=== PATIENT | female | born 1960 | race African-American/Black ===

== ENCOUNTER 2016-07-12 18:49 | Emergency (ER) | payer MEDICARE, MEDICAID ==
[~2016-07-12] VITALS: Ht 170.2 cm; Wt 109.3 kg
[~2016-07-12 18:49] MED LIST: ASPI81TA27 PO; Atorvastatin Calcium PO; CLOP75TA28 PO; MET25T PO; OMEP20TA PO
[2016-07-12 19:44] LABS: Basophils # (auto) 0 uL; Basophils % (auto) 0.3 % (0.0-2.0); Eosinophils # (auto) 0.2 uL; Eosinophils % (auto) 1.4 % (0.0-7.0); Hematocrit 45.5 % (36.0-46.0); Hemoglobin 15.1 g/dL (12.2-16.2); Lymphocytes % (auto) 26.3 % (10.0-50.0); Mean Corpuscular Hemoglobin 29.2 pg (28.0-32.0); Mean Corpuscular Hgb Conc. 33.2 g/dL (32.0-36.0); Mean Corpuscular Volume 88.1 fL (80.0-100.0); Mean Platelet Volume 9.2 fL (7.4-10.4); Monocytes # (auto) 0.9 uL; Monocytes % (auto) 8.3 % (0.0-12.0); Neutrophils # (auto) 7.2 uL; Neutrophils % (auto) 63.7 % (37.0-80.0); Platelet Count (auto) 303 10^3/uL (140-450); Red Cell Distribution Width 13.6 % (11.6-16.0); White Blood Cell 11.4 10^3/uL (4.4-10.8)
[2016-07-12 19:58] LABS: Albumin 3.4 g/dL (3.4-5.0); BUN/Creatinine Ratio 20.4; Calcium 8.8 mg/dL (8.5-10.1); Potassium 4.3 mmol/L (3.5-5.1)
[2016-07-12 20:02] LABS: Bilirubin, Total 0.3 mg/dL (0.2-1.0); Total Protein 7.7 g/dL (6.4-8.2)
[2016-07-12 22:06] LABS: Urine Bilirubin Negative (Negative); Urine Blood Negative /uL (Negative); Urine Color Yellow (Yellow); Urine Glucose Normal (Normal); Urine Ketone Negative (Negative); Urine Nitrite Negative (Negative); Urine RBC 5 /hpf (0 - 4); Urine Squamous Epithelial Cell MOD /hpf (<5); Urine Urobilinogen Normal (Negative); Urine pH 5.5 (5.0-8.0)
[2016-07-13 00:20] VITALS: BP 121/82
[2016-07-13] MEDS ORDERED: KETOROLAC TROMETH 60MG/2ML VIAL IM ONE (00:30)
== END 2016-07-13 01:48 | disposition home or self-care (01) ==
LOC: ER 18:49
DX: N39.0 Urinary tract infection, site not specified (principal); M19.90 Unspecified osteoarthritis, unspecified site; J45.909 Unspecified asthma, uncomplicated; I12.9 Hypertensive chronic kidney disease with stage 1 through stage 4 chronic kidney disease, or unspecified chronic kidney disease; N18.9 Chronic kidney disease, unspecified; E78.5 Hyperlipidemia, unspecified; Z86.73 Personal history of transient ischemic attack (TIA), and cerebral infarction without residual deficits; Z90.49 Acquired absence of other specified parts of digestive tract; Z90.710 Acquired absence of both cervix and uterus; Z98.61 Coronary angioplasty status; F17.210 Nicotine dependence, cigarettes, uncomplicated; Z88.1 Allergy status to other antibiotic agents; Z88.8 Allergy status to other drugs, medicaments and biological substances
CPT/HCPCS: 36415; 80053; 81001; 85025; 96372; 99284; J1885

== ENCOUNTER 2016-11-29 09:22 | Emergency (ER) | payer MEDICARE, MEDICAID ==
[~2016-11-29] VITALS: Ht 170.2 cm; Wt 111.1 kg
[2016-11-29 09:28] VITALS: BP 116/95
[2016-11-29 10:08] LABS: Basophils # (auto) 0 uL; Basophils % (auto) 0.4 % (0.0-2.0); Eosinophils # (auto) 0.1 uL; Eosinophils % (auto) 0.8 % (0.0-7.0); Hematocrit 44.7 % (36.0-46.0); Lymphocytes # (auto) 1.9 uL; Lymphocytes % (auto) 21.5 % (10.0-50.0); Mean Corpuscular Hemoglobin 29.8 pg (28.0-32.0); Mean Corpuscular Hgb Conc. 33.6 g/dL (32.0-36.0); Mean Corpuscular Volume 88.8 fL (80.0-100.0); Mean Platelet Volume 8.8 fL (6.9-10.8); Monocytes # (auto) 0.6 uL; Monocytes % (auto) 6.4 % (0.0-12.0); Neutrophils # (auto) 6.2 uL; Neutrophils % (auto) 70.9 % (37.0-80.0); Nucleated Red Blood Cells % 0.2 %; Platelet Count (auto) 274 10^3/uL (140-450); Red Cell Distribution Width 13.8 % (11.8-14.3); White Blood Cell 8.7 10^3/uL (4.4-10.8)
[2016-11-29 10:25] LABS: Albumin 3.8 g/dL (3.4-5.0); Alkaline Phosphatase 77 U/L (45-117); Anion Gap 12 (5-15); Aspartate Aminotransferase 22 U/L (15-37); BUN/Creatinine Ratio 17.8; Bilirubin, Total 0.5 mg/dL (0.2-1.0); Blood Urea Nitrogen 13 mg/dL (7-18); Calcium 8.5 mg/dL (8.5-10.1); Carbon Dioxide 23 mmol/L (21-32); Chloride 106 mmol/L (98-107); GFR African American 106 mL/min; GFR Non-African American 88 mL/min; Glucose 99 mg/dL (74-106); Magnesium 2.5 mg/dL (1.6-2.6); Potassium 3.7 mmol/L (3.5-5.1); Sodium 141 mmol/L (136-145); Total Protein 7.9 g/dL (6.4-8.2)
[2016-11-29] MEDS ORDERED: ONDANSETRON HCL 4 MG/2 ML VIAL IV ONE (10:45)
[2016-11-29] MEDS ORDERED: MORPHINE SULF INJ 2 MG/ML SYRINGE 1ML IV ONE (10:45)
[2016-11-29] MEDS ORDERED: ASPirin 81 mg TAB PO ONE (10:45)
[2016-11-29] MEDS ORDERED: diphenhdrAMINE HCL 50 MG/1 ML VL ONE (11:02)
[2016-11-29] MEDS ORDERED: diphenhdrAMINE HCL 50 MG/1 ML VL IV ONE (11:30)
== END 2016-11-29 13:48 | disposition home or self-care (01) ==
LOC: ER 09:22
DX: F41.9 Anxiety disorder, unspecified (principal); J45.909 Unspecified asthma, uncomplicated; M19.90 Unspecified osteoarthritis, unspecified site; K21.9 Gastro-esophageal reflux disease without esophagitis; E78.5 Hyperlipidemia, unspecified; I25.10 Atherosclerotic heart disease of native coronary artery without angina pectoris; I12.9 Hypertensive chronic kidney disease with stage 1 through stage 4 chronic kidney disease, or unspecified chronic kidney disease; F17.210 Nicotine dependence, cigarettes, uncomplicated; N18.9 Chronic kidney disease, unspecified; Z88.6 Allergy status to analgesic agent; Z90.49 Acquired absence of other specified parts of digestive tract; Z90.710 Acquired absence of both cervix and uterus
CPT/HCPCS: 36415; 71020; 80053; 83735; 84484; 85025; 93005; 96374; 96375; 99285; J1200; J2270; J2405; J7030

== ENCOUNTER → 2016-12-04 | Outpatient (CLI) | payer MEDICARE, MEDICAID ==
[~2016-12-04] VITALS: Ht 170.2 cm; Wt 111.1 kg
[~2016-12-04] MED LIST changes: +ADENOSINE 93 MG in GIVE UN-DILUTED 0 ML IV STA; +ALBUTEROL SULF 2.5 MG/0.5ML(0.5%) NEB SOLN NEB ONE; +IPRATROPIUM BROM 0.5 MG/2.5ML INH SOL NEB ONE
== END | disposition home or self-care (01) ==
LOC: XY 07:27
PROVIDERS: ATTEND Internal Medicine Cardiovascular Disease
DX: R07.89 Other chest pain (principal); I12.9 Hypertensive chronic kidney disease with stage 1 through stage 4 chronic kidney disease, or unspecified chronic kidney disease; N18.9 Chronic kidney disease, unspecified; I25.10 Atherosclerotic heart disease of native coronary artery without angina pectoris; K21.9 Gastro-esophageal reflux disease without esophagitis; Z98.61 Coronary angioplasty status; Z90.49 Acquired absence of other specified parts of digestive tract
CPT/HCPCS: 78452; 93017; A9500; J0153

== ENCOUNTER 2017-06-05 07:42 | Day surgery (SDC) | payer MEDICARE, MEDICAID ==
[2017-06-03 15:59] LABS: Urine Bacteria MANY /hpf (None Seen); Urine Blood TRACE /uL (Negative); Urine Mucus FEW (None Seen); Urine Specific Gravity 1.025 (1.001-1.035); Urine WBC 10 /hpf (0 - 5)
[2017-06-03 16:13] LABS: Basophils # (auto) 0 uL; Basophils % (auto) 0.3 % (0.0-2.0); Eosinophils # (auto) 0.1 uL; Eosinophils % (auto) 0.9 % (0.0-7.0); Hematocrit 46.9 % (36.0-46.0); Hemoglobin 15.3 g/dL (12.2-16.2); Lymphocytes # (auto) 1.9 uL; Lymphocytes % (auto) 18.9 % (10.0-50.0); Mean Corpuscular Hemoglobin 29.5 pg (28.0-32.0); Mean Corpuscular Hgb Conc. 32.6 g/dL (32.0-36.0); Mean Corpuscular Volume 90.5 fL (80.0-100.0); Monocytes # (auto) 0.7 uL; Monocytes % (auto) 7.4 % (0.0-12.0); Neutrophils # (auto) 7.2 uL; Neutrophils % (auto) 72.5 % (37.0-80.0); Nucleated Red Blood Cells % 0.1 %; Platelet Count (auto) 276 10^3/uL (140-450); Red Blood Cells 5.19 10^6/uL (4.0-5.20); Red Cell Distribution Width 14.7 % (11.8-14.3); White Blood Cell 9.9 10^3/uL (4.4-10.8)
[2017-06-03 16:21] LABS: Albumin 3.7 g/dL (3.4-5.0); BUN/Creatinine Ratio 19.8; Bilirubin, Total 0.2 mg/dL (0.2-1.0); Calcium 9.3 mg/dL (8.5-10.1); Potassium 4.2 mmol/L (3.5-5.1)
[2017-06-03 16:47] LABS: INR 0.97 (0.9-1.15); Partial Thromboplastin Time 26.8 sec (22.64-33.71); Prothrombin Time 10.6 sec (9.37-12.3)
[~2017-06-05] VITALS: Ht 170.2 cm; Wt 111.1 kg
[2017-06-05] MEDS ORDERED: ceFAZolin 1GM/50ML 50 ML IV ONE (10:32)
[2017-06-05] MEDS ORDERED: BUPIVACAINE 0.75% INJ 10ML MPV SDV IJ ONE (13:45)
[2017-06-05] MEDS ORDERED: NEOMYCIN-BACITRACIN-POLYM 15GM TOP OINT TOP ONE (13:45)
[2017-06-05] MEDS ORDERED: MIDAZOLAM HCL 1MG/1ML-2 ML VIAL ONE (14:31)
[2017-06-05] MEDS ORDERED: PROPOFOL 10 MG/ML 20 ML IV ONE (14:31)
[2017-06-05] MEDS ORDERED: fentaNYL CITRATE 100 MCG/2 ML VL ONE (14:31)
[2017-06-05] MEDS ORDERED: hydrALAZINE HCL 20 MG/ML VL IV PRN (15:15)
[2017-06-05] MEDS ORDERED: ONDANSETRON HCL 4 MG/2 ML VIAL IV ONE (15:15)
[2017-06-05] MEDS ORDERED: ePHEDrine SULFATE 50 MG/ML AMP IV PRN (15:15)
[2017-06-05 15:30] VITALS: BP 149/93
[2017-06-05] MEDS ORDERED: fentaNYL CITRATE 100 MCG/2 ML VL IV ONE (16:00)
== END 2017-06-05 15:35 | disposition home or self-care (01) ==
LOC: SUR 07:42
PROVIDERS: ATTEND Podiatrist Foot & Ankle Surgery
DX: B07.0 Plantar wart (principal); K21.9 Gastro-esophageal reflux disease without esophagitis; E66.9 Obesity, unspecified; Z68.38 Body mass index [BMI] 38.0-38.9, adult; I50.9 Heart failure, unspecified; J40 Bronchitis, not specified as acute or chronic; D21.9 Benign neoplasm of connective and other soft tissue, unspecified; Z90.710 Acquired absence of both cervix and uterus; F41.9 Anxiety disorder, unspecified; Z87.891 Personal history of nicotine dependence; Z90.49 Acquired absence of other specified parts of digestive tract; I25.119 Atherosclerotic heart disease of native coronary artery with unspecified angina pectoris
CPT/HCPCS: 14040; 36415; 80053; 81001; 85025; 85610; 85730; 88304; J0690; J2250; J2704; J3010; J3490; L3260

== ENCOUNTER → 2018-11-07 | Outpatient (CLI) | payer MEDICARE, MEDICAID ==
[2018-11-07 10:24] LABS: Basophils # (auto) 0 uL; Basophils % (auto) 0.5 % (0.0-2.0); Eosinophils # (auto) 0.2 uL; Hematocrit 45.1 % (36.0-46.0); Hemoglobin 14.6 g/dL (12.2-16.2); Lymphocytes # (auto) 1.9 uL; Lymphocytes % (auto) 24.7 % (10.0-50.0); Mean Corpuscular Hemoglobin 29.2 pg (28.0-32.0); Mean Corpuscular Hgb Conc. 32.4 g/dL (32.0-36.0); Mean Corpuscular Volume 90.3 fL (80.0-100.0); Monocytes # (auto) 0.4 uL; Monocytes % (auto) 5.6 % (0.0-12.0); Neutrophils # (auto) 5.1 uL; Neutrophils % (auto) 67.2 % (37.0-80.0); Nucleated Red Blood Cells % 0.2 %; Platelet Count (auto) 281 10^3/uL (140-450); Red Blood Cells 4.99 10^6/uL (4.0-5.20); Red Cell Distribution Width 15.6 % (11.8-14.3); White Blood Cell 7.7 10^3/uL (4.4-10.8)
[2018-11-07 10:37] LABS: INR 0.99 (0.9-1.15)
[2018-11-07 10:46] LABS: Urine Bacteria NONE SEEN /hpf (None Seen); Urine Blood Negative /uL (Negative); Urine Specific Gravity 1.024 (1.001-1.035); Urine WBC 31 /hpf (0 - 5)
[2018-11-07 10:54] LABS: Albumin 3.9 g/dL (3.4-5.0); Potassium 3.9 mmol/L (3.5-5.1)
[2018-11-07 11:01] LABS: BUN/Creatinine Ratio 19.8; Bilirubin, Total 0.4 mg/dL (0.2-1.0); Total Protein 7.8 g/dL (6.4-8.2)
== END | disposition home or self-care (01) ==
LOC: LAB 09:44
PROVIDERS: ATTEND Internal Medicine
DX: K92.0 Hematemesis (principal); I13.0 Hypertensive heart and chronic kidney disease with heart failure and stage 1 through stage 4 chronic kidney disease, or unspecified chronic kidney disease; I50.9 Heart failure, unspecified; N18.9 Chronic kidney disease, unspecified
CPT/HCPCS: 36415; 80053; 80061; 81001; 84439; 84443; 85025; 85610; 85652

== ENCOUNTER → 2019-01-02 | Outpatient (CLI) | payer MEDICARE, MEDICAID | END | disposition home or self-care (01) | LOC: XYW 08:51 | PROVIDERS: ATTEND Internal Medicine | DX: Z01.810 Encounter for preprocedural cardiovascular examination (principal); I11.9 Hypertensive heart disease without heart failure; I13.11 Hypertensive heart and chronic kidney disease without heart failure, with stage 5 chronic kidney disease, or end stage renal disease; I25.10 Atherosclerotic heart disease of native coronary artery without angina pectoris; N18.6 End stage renal disease; F17.200 Nicotine dependence, unspecified, uncomplicated; K21.9 Gastro-esophageal reflux disease without esophagitis; M19.90 Unspecified osteoarthritis, unspecified site; J45.909 Unspecified asthma, uncomplicated; E78.5 Hyperlipidemia, unspecified; Z90.710 Acquired absence of both cervix and uterus; Z90.49 Acquired absence of other specified parts of digestive tract; Z98.61 Coronary angioplasty status; Z88.8 Allergy status to other drugs, medicaments and biological substances | CPT/HCPCS: 93306 ==

== ENCOUNTER → 2019-01-13 | Outpatient (CLI) | payer MEDICARE, MEDICAID ==
[~2019-01-13] VITALS: Ht 170.2 cm; Wt 111.1 kg
[~2019-01-13] MED LIST changes: -ALBUTEROL SULF 2.5 MG/0.5ML(0.5%) NEB SOLN NEB ONE; -ASPI81TA27 PO; -Atorvastatin Calcium PO; -CLOP75TA28 PO; -IPRATROPIUM BROM 0.5 MG/2.5ML INH SOL NEB ONE; -MET25T PO; -OMEP20TA PO
[2019-01-13 09:58] VITALS: BP 148/104
== END | disposition home or self-care (01) ==
LOC: XY 07:54
PROVIDERS: ATTEND Internal Medicine
DX: Z01.810 Encounter for preprocedural cardiovascular examination (principal); I25.10 Atherosclerotic heart disease of native coronary artery without angina pectoris
CPT/HCPCS: 78452; 93017; A9500; J0153

== ENCOUNTER → 2019-08-14 | Outpatient (CLI) | payer MEDICARE, MEDICAID ==
[~2019-08-14] MED LIST changes: -ADENOSINE 93 MG in GIVE UN-DILUTED 0 ML IV STA; +CARI350T23; +ESOM40CA83; +HYDR-531; +SIMV-8
== END | disposition home or self-care (01) ==
LOC: LAB 13:48
PROVIDERS: ATTEND Nurse Practitioner Family
DX: Z03.818 Encounter for observation for suspected exposure to other biological agents ruled out (principal)
CPT/HCPCS: 87635

== ENCOUNTER 2020-11-03 08:42 | Day surgery (SDC) | payer MEDICARE, MEDICAID ==
[2020-10-31 10:41] LABS: Basophils # (auto) 0 10 ^3/uL (0-0.2); Basophils % (auto) 0.5 % (0.0-2.0); Eosinophils # (auto) 0.1 10 ^3/uL (0-0.8); Eosinophils % (auto) 1.2 % (0.0-7.0); Hematocrit 48.6 % (36.0-46.0); Hemoglobin 15.8 g/dL (12.2-16.2); Lymphocytes # (auto) 1.4 10 ^3/uL (0.4-5.4); Lymphocytes % (auto) 20.1 % (10.0-50.0); Mean Corpuscular Hemoglobin 30.1 pg (28.0-32.0); Mean Corpuscular Hgb Conc. 32.5 g/dL (32.0-36.0); Mean Corpuscular Volume 92.4 fL (80.0-100.0); Monocytes # (auto) 0.6 10 ^3/uL (0-1.3); Monocytes % (auto) 7.8 % (0.0-12.0); Neutrophils % (auto) 70.4 % (37.0-80.0); Nucleated Red Blood Cells % 0.1 %; Red Blood Cells 5.26 10^6/uL (4.0-5.20); Red Cell Distribution Width 13.6 % (11.8-14.3); White Blood Cell 7.1 10^3/uL (4.4-10.8)
[2020-10-31 12:30] LABS: Potassium 4.3 mmol/L (3.5-5.1)
[2020-10-31 12:39] LABS: Albumin 3.8 g/dL (3.4-5.0); Bilirubin, Total 0.3 mg/dL (0.2-1.0); Calcium 9.3 mg/dL (8.5-10.1)
[~2020-11-03] VITALS: Ht 167.6 cm; Wt 104.3 kg
[2020-11-03] MEDS ORDERED: SODIUM CHLORIDE LOCK 10 ML ONE (08:54)
[2020-11-03] MEDS ORDERED: diphenhdrAMINE HCL 50 MG/1 ML VL ONE (08:55)
[2020-11-03] MEDS ORDERED: LIDOCAINE VISCOUS 2% 15ML UD ONE (09:03)
[2020-11-03] MEDS: MIDAZOLAM HCL 5 MG/ML-1ML VIAL ONE ×5 (09:22→09:44)
[2020-11-03] MEDS: fentaNYL CITRATE 100 MCG/2 ML VL ONE ×5 (09:22→09:44)
[2020-11-03 10:35] VITALS: BP 146/90
== END 2020-11-03 10:35 | disposition home or self-care (01) ==
LOC: GI 08:42
PROVIDERS: ATTEND Internal Medicine Gastroenterology
DX: K57.90 Diverticulosis of intestine, part unspecified, without perforation or abscess without bleeding (principal); R19.5 Other fecal abnormalities; R10.9 Unspecified abdominal pain; I25.2 Old myocardial infarction; R63.4 Abnormal weight loss; K21.9 Gastro-esophageal reflux disease without esophagitis; F41.9 Anxiety disorder, unspecified; I50.9 Heart failure, unspecified; I25.118 Atherosclerotic heart disease of native coronary artery with other forms of angina pectoris; Z90.710 Acquired absence of both cervix and uterus; Z98.890 Other specified postprocedural states; Z79.899 Other long term (current) drug therapy; Z88.8 Allergy status to other drugs, medicaments and biological substances; Z68.37 Body mass index [BMI] 37.0-37.9, adult; Z20.822 Contact with and (suspected) exposure to COVID-19
CPT/HCPCS: 36415; 43239; 45378; 80053; 85025; 88305; 88342; C9803; J1200; J2250; J3010; J7030; U0003; 99153; G0500

== ENCOUNTER → 2020-11-22 | Outpatient (CLI) | payer MEDICARE | END | disposition home or self-care (01) | LOC: LAB 10:46 | PROVIDERS: ATTEND Internal Medicine Gastroenterology | DX: R10.9 Unspecified abdominal pain (principal) | CPT/HCPCS: 36415; 82565; 84520 ==

== ENCOUNTER 2022-05-30 11:00 | Day surgery (SDC) | payer OTHER ==
[2022-05-28 13:25] LABS: Basophils # (auto) 0 10 ^3/uL (0-0.2); Basophils % (auto) 0.4 % (0.0-2.0); Eosinophils # (auto) 0.1 10 ^3/uL (0-0.8); Eosinophils % (auto) 0.7 % (0.0-7.0); Hematocrit 41.9 % (36.0-46.0); Hemoglobin 13.9 g/dL (12.2-16.2); Lymphocytes # (auto) 1.5 10 ^3/uL (0.4-5.4); Lymphocytes % (auto) 19.9 % (10.0-50.0); Mean Corpuscular Hemoglobin 31.3 pg (28.0-32.0); Mean Corpuscular Hgb Conc. 33.2 g/dL (32.0-36.0); Mean Corpuscular Volume 94.5 fL (80.0-100.0); Monocytes # (auto) 0.6 10 ^3/uL (0-1.3); Monocytes % (auto) 7.8 % (0.0-12.0); Neutrophils # (auto) 5.2 10 ^3/uL (1.6-8.6); Neutrophils % (auto) 71.2 % (37.0-80.0); Nucleated Red Blood Cells % 0.2 %; Red Blood Cells 4.43 10^6/uL (4.0-5.20); Red Cell Distribution Width 13.5 % (11.8-14.3); White Blood Cell 7.3 10^3/uL (4.4-10.8)
[2022-05-28 13:41] LABS: Urine Bacteria FEW /hpf (None Seen); Urine Blood Negative /uL (Negative); Urine Mucus FEW (None Seen); Urine Specific Gravity 1.027 (1.001-1.035); Urine WBC 18 /hpf (0 - 5)
[2022-05-28 13:43] LABS: Potassium 3.5 mmol/L (3.5-5.1)
[2022-05-28 13:44] LABS: INR 1.01 (0.9-1.15); Partial Thromboplastin Time 26.5 sec (24.6-33.4)
[2022-05-28 13:51] LABS: Albumin 3.4 g/dL (3.4-5.0); BUN/Creatinine Ratio 20.8 (10.0-20.0); Bilirubin, Total 0.7 mg/dL (0.2-1.0); Calcium 8.8 mg/dL (8.5-10.1); Total Protein 7.5 g/dL (6.4-8.2)
[~2022-05-30] VITALS: Ht 167.6 cm; Wt 99.3 kg
[~2022-05-30 11:00] MED LIST changes: +ASPI1TAB20 PO; -CARI350T23; -ESOM40CA83; -HYDR-531; +METO25TA5 PO; +PANT40TA2 PO; +SUCR1SUS5 PO
[2022-05-30] MEDS ORDERED: MIDAZOLAM HCL 2MG/2ML 2ml VIAL (1mg/ml) ONE (13:56)
[2022-05-30] MEDS ORDERED: fentaNYL CITRATE 100 MCG/2 ML VL ONE (13:56)
[2022-05-30] MEDS ORDERED: MEPERIDINE HCL (25 MG/ML) 1ML VIAL ONE (13:56)
[2022-05-30] MEDS ORDERED: DexAMETHasone SOD PHOS 10MG/1ML VIAL INJ ONE (14:27)
[2022-05-30] MEDS ORDERED: PROPOFOL 10 MG/ML 20 ML IV ONE (14:27)
[2022-05-30 15:15] VITALS: BP 110/86
== END 2022-05-30 15:15 | disposition home or self-care (01) ==
LOC: GI 11:00
PROVIDERS: ATTEND Internal Medicine Gastroenterology
DX: R10.13 Epigastric pain (principal); K59.09 Other constipation; K57.30 Diverticulosis of large intestine without perforation or abscess without bleeding; K64.0 First degree hemorrhoids; K63.5 Polyp of colon; K62.1 Rectal polyp; K25.9 Gastric ulcer, unspecified as acute or chronic, without hemorrhage or perforation; K29.50 Unspecified chronic gastritis without bleeding; K44.9 Diaphragmatic hernia without obstruction or gangrene; Z20.822 Contact with and (suspected) exposure to COVID-19
CPT/HCPCS: 36415; 43239; 45380; 80053; 81001; 85025; 85610; 85730; 88305; 88342; J1100; J2175; J2250; J2704; J3010; J7030; U0003

== ENCOUNTER → 2022-06-06 | Outpatient (CLI) | payer OTHER ==
[2022-06-06 13:57] LABS: Basophils # (auto) 0.1 10 ^3/uL (0-0.2); Basophils % (auto) 0.8 % (0.0-2.0); Eosinophils # (auto) 0.1 10 ^3/uL (0-0.8); Eosinophils % (auto) 0.9 % (0.0-7.0); Hematocrit 41.1 % (36.0-46.0); Hemoglobin 13.7 g/dL (12.2-16.2); Lymphocytes # (auto) 1.4 10 ^3/uL (0.4-5.4); Lymphocytes % (auto) 19.4 % (10.0-50.0); Mean Corpuscular Hgb Conc. 33.4 g/dL (32.0-36.0); Mean Corpuscular Volume 95.6 fL (80.0-100.0); Monocytes # (auto) 0.6 10 ^3/uL (0-1.3); Monocytes % (auto) 7.9 % (0.0-12.0); Neutrophils # (auto) 5.1 10 ^3/uL (1.6-8.6); Nucleated Red Blood Cells % 0.1 %; Red Cell Distribution Width 13.7 % (11.8-14.3); White Blood Cell 7.3 10^3/uL (4.4-10.8)
[2022-06-06 14:09] LABS: Urine Bacteria FEW /hpf (None Seen); Urine Blood Negative /uL (Negative); Urine Mucus FEW (None Seen); Urine Specific Gravity 1.023 (1.001-1.035); Urine WBC 8 /hpf (0 - 5)
[2022-06-06 14:28] LABS: Potassium 3.5 mmol/L (3.5-5.1)
[2022-06-06 14:55] LABS: Albumin 3.2 g/dL (3.4-5.0); BUN/Creatinine Ratio 19.1 (10.0-20.0); Calcium 8.9 mg/dL (8.5-10.1)
[2022-06-06 14:58] LABS: Bilirubin, Total 0.4 mg/dL (0.2-1.0); Total Protein 7.3 g/dL (6.4-8.2)
== END | disposition home or self-care (01) ==
LOC: LAB 13:32
PROVIDERS: ATTEND Internal Medicine
DX: N39.0 Urinary tract infection, site not specified (principal)
CPT/HCPCS: 36415; 80053; 81001; 85025; 87086

== ENCOUNTER → 2022-07-02 | Outpatient (CLI) | payer OTHER ==
[2022-07-02 14:01] LABS: Albumin 3.7 g/dL (3.4-5.0); Potassium 4.4 mmol/L (3.5-5.1)
[2022-07-02 14:05] LABS: BUN/Creatinine Ratio 17.1 (10.0-20.0); Bilirubin, Total 0.4 mg/dL (0.2-1.0); Total Protein 7.7 g/dL (6.4-8.2)
== END | disposition home or self-care (01) ==
LOC: LAB 13:27
PROVIDERS: ATTEND Internal Medicine
DX: I10 Essential (primary) hypertension (principal); R79.89 Other specified abnormal findings of blood chemistry
CPT/HCPCS: 36415; 80053

== ENCOUNTER → 2023-03-07 | Outpatient (CLI) | payer MEDICARE ==
[~2023-03-07] MED LIST changes: -SIMV-8; +SIMV20TA20
[2023-03-07 08:09] LABS: Basophils # (auto) 0 10 ^3/uL (0-0.2); Basophils % (auto) 0.4 % (0.0-2.0); Eosinophils # (auto) 0.1 10 ^3/uL (0-0.8); Eosinophils % (auto) 0.7 % (0.0-7.0); Hematocrit 43.9 % (36.0-46.0); Hemoglobin 14.3 g/dL (12.2-16.2); Lymphocytes # (auto) 2.1 10 ^3/uL (0.4-5.4); Lymphocytes % (auto) 29.3 % (10.0-50.0); Mean Corpuscular Hemoglobin 30.4 pg (28.0-32.0); Mean Corpuscular Hgb Conc. 32.6 g/dL (32.0-36.0); Mean Corpuscular Volume 93.2 fL (80.0-100.0); Monocytes # (auto) 0.7 10 ^3/uL (0-1.3); Monocytes % (auto) 9.5 % (0.0-12.0); Neutrophils # (auto) 4.3 10 ^3/uL (1.6-8.6); Neutrophils % (auto) 60.1 % (37.0-80.0); Nucleated Red Blood Cells % 0.1 %; Red Blood Cells 4.71 10^6/uL (4.0-5.20); Red Cell Distribution Width 14.4 % (11.8-14.3); White Blood Cell 7.2 10^3/uL (4.4-10.8)
[2023-03-07 08:28] LABS: Urine Bacteria NONE SEEN /hpf (None Seen); Urine Blood Negative /uL (Negative); Urine Clarity HAZY (Clear); Urine Color Yellow (Yellow); Urine Hyaline Cast FEW /lpf (0 - 2); Urine Mucus FEW (None Seen); Urine Protein, UAD TRACE (Negative); Urine Specific Gravity 1.024 (1.001-1.035); Urine Urobilinogen Normal (Negative); Urine WBC 7 /hpf (0 - 5); Urine pH 5.5 (5.0-8.0)
[2023-03-07 08:50] LABS: Alanine Aminotransferase 14 U/L (7-40); Albumin 4.5 g/dL (3.2-4.8); Alkaline Phosphatase 74 U/L (46-116); Anion Gap 7 (5-15); Aspartate Aminotransferase 17 U/L (13-40); BUN/Creatinine Ratio 13.8 (10.0-20.0); Bilirubin, Total 0.6 mg/dL (0.2-1.0); Blood Urea Nitrogen 11 mg/dL (9-23); Calcium 9.2 mg/dL (8.5-10.1); Carbon Dioxide 29 mmol/L (20-30); Chloride 106 mmol/L (98-107); Cholesterol 260 mg/dL (< 200); Glucose 99 mg/dL (74-106); HDL Cholesterol 70 mg/dL (40-59); LDL Cholesterol 181 mg/dL (< 100); Potassium 3.8 mmol/L (3.5-5.1); Sodium 142 mmol/L (136-145); Total Protein 7.4 g/dL (5.7-8.2); Triglycerides 67 mg/dL (< 150)
[2023-03-07 09:04] LABS: Erythrocyte Sedimentation Rate 24 mm/hr (0-20)
== END | disposition home or self-care (01) ==
LOC: LAB 07:51
PROVIDERS: ATTEND Internal Medicine
DX: I10 Essential (primary) hypertension (principal); I25.10 Atherosclerotic heart disease of native coronary artery without angina pectoris
CPT/HCPCS: 36415; 80053; 80061; 81001; 84439; 84443; 85025; 85652

== ENCOUNTER → 2023-03-12 | Outpatient (CLI) | payer MEDICARE, OTHER | END | disposition home or self-care (01) | LOC: XYW 11:45 | PROVIDERS: ATTEND Internal Medicine | DX: I08.8 Other rheumatic multiple valve diseases (principal); R07.9 Chest pain, unspecified | CPT/HCPCS: 93306 ==

== ENCOUNTER → 2023-04-08 | Outpatient (CLI) | payer MEDICARE, OTHER ==
[~2023-04-08] VITALS: Ht 167.6 cm; Wt 104.3 kg
[2023-04-08] MEDS: ADENOSINE 88 MG in GIVE UN-DILUTED 0 ML IV STA (10:38)
== END | disposition home or self-care (01) ==
LOC: XYW 07:55
PROVIDERS: ATTEND Internal Medicine
DX: Z01.810 Encounter for preprocedural cardiovascular examination (principal); I25.118 Atherosclerotic heart disease of native coronary artery with other forms of angina pectoris; R07.9 Chest pain, unspecified; I10 Essential (primary) hypertension; M17.10 Unilateral primary osteoarthritis, unspecified knee; Z95.5 Presence of coronary angioplasty implant and graft
CPT/HCPCS: 78452; 93017; A9500; J0153

== ENCOUNTER 2023-11-12 07:26 | Inpatient (IN) | payer MEDICARE, OTHER ==
[2023-11-08 14:59] LABS: Basophils # (auto) 0 10 ^3/uL (0-0.2); Basophils % (auto) 0.5 % (0.0-2.0); Eosinophils # (auto) 0.2 10 ^3/uL (0-0.8); Eosinophils % (auto) 2.6 % (0.0-7.0); Hematocrit 44.7 % (36.0-46.0); Hemoglobin 14.9 g/dL (12.2-16.2); Lymphocytes # (auto) 1.6 10 ^3/uL (0.4-5.4); Lymphocytes % (auto) 23.4 % (10.0-50.0); Mean Corpuscular Hgb Conc. 33.3 g/dL (32.0-36.0); Mean Corpuscular Volume 93.1 fL (80.0-100.0); Monocytes # (auto) 0.6 10 ^3/uL (0-1.3); Monocytes % (auto) 8.3 % (0.0-12.0); Neutrophils # (auto) 4.6 10 ^3/uL (1.6-8.6); Neutrophils % (auto) 65.2 % (37.0-80.0); Nucleated Red Blood Cells % 0.1 %; Platelet Count (auto) 250 10^3/uL (140-450); Red Cell Distribution Width 13.8 % (11.8-14.3)
[2023-11-08 15:05] LABS: INR 1.08 (0.9-1.15); Partial Thromboplastin Time 26.1 SEC (24.5-34.5); Prothrombin Time 11.4 sec (9.3-11.8)
[2023-11-08 15:25] LABS: Alanine Aminotransferase 32 U/L (7-40); Alkaline Phosphatase 82 U/L (46-116); Anion Gap 4 (5-15); Aspartate Aminotransferase 30 U/L (13-40); BUN/Creatinine Ratio 16.5 (10.0-20.0); Blood Urea Nitrogen 16 mg/dL (9-23); Calcium 9.8 mg/dL (8.7-10.4); Carbon Dioxide 30 mmol/L (20-30); Chloride 109 mmol/L (98-107); Glucose 94 mg/dL (74-106); Potassium 4.4 mmol/L (3.5-5.1); Sodium 143 mmol/L (136-145)
[2023-11-08 15:26] LABS: Albumin 4.6 g/dL (3.2-4.8); Bilirubin, Total 0.4 mg/dL (0.2-1.0); Total Protein 7.5 g/dL (5.7-8.2)
[2023-11-12] VITALS (20 sets, daily range): BP systolic 104–196; BP diastolic 64–114; PULSE 72–103; RESP 13–19; TEMP 97.7–97.9; O2SAT 95–98
[~2023-11-12] VITALS: Ht 170.2 cm; Wt 109.2 kg
[~2023-11-12 07:26] MED LIST changes: +ATOR20TA50 PO; -SIMV20TA20; -SUCR1SUS5 PO
[2023-11-12] MEDS: ANGIOMAX 250 MG VIAL IV ONE (09:29)
[2023-11-12] MEDS: HEPARIN SODIUM (PORCINE) 5000 UNITS/ML 1ML VIAL ONE (09:29)
[2023-11-12] MEDS: VERAPAMIL 2.5MG/ML INJ 2ML VIAL IV ONE (09:30)
[2023-11-12] MEDS: fentaNYL CITRATE 100 MCG/2 ML VL ONE (09:30)
[2023-11-12] MEDS: MIDAZOLAM HCL 2MG/2ML 2ml VIAL (1mg/ml) ONE (09:30)
[2023-11-12] MEDS: SODIUM CHL 0.9% 0 ML ONE (09:30)
[2023-11-12] MEDS: LIDOCAINE 2%HCL (LOCAL ANESTH.) INJ 10ml MDV ONE (09:31)
[2023-11-12] MEDS ORDERED: NITROGLYCERIN 0.4 MG SL TAB SL PRN (11:00)
[2023-11-12] MEDS: hydrALAZINE HCL 20 MG/ML VL IV PRN (11:35)
[2023-11-12] MEDS: HEPARIN DRIP/D5W 100UNITS/ML 250 ML IV SCH ×2 (11:46→21:30)
[2023-11-12] MEDS: HEPARIN DRIP/D5W 100UNITS/ML 250 ML IV ONE (11:53)
[2023-11-12 12:20] LABS: Basophils # (auto) 0 10 ^3/uL (0-0.2); Basophils % (auto) 0.4 % (0.0-2.0); Eosinophils # (auto) 0.1 10 ^3/uL (0-0.8); Eosinophils % (auto) 1.6 % (0.0-7.0); Hematocrit 45.6 % (36.0-46.0); Hemoglobin 15.2 g/dL (12.2-16.2); Lymphocytes # (auto) 1.7 10 ^3/uL (0.4-5.4); Lymphocytes % (auto) 33.1 % (10.0-50.0); Mean Corpuscular Hemoglobin 31.1 pg (28.0-32.0); Mean Corpuscular Hgb Conc. 33.3 g/dL (32.0-36.0); Mean Corpuscular Volume 93.5 fL (80.0-100.0); Monocytes # (auto) 0.4 10 ^3/uL (0-1.3); Monocytes % (auto) 7.5 % (0.0-12.0); Neutrophils # (auto) 2.9 10 ^3/uL (1.6-8.6); Neutrophils % (auto) 57.4 % (37.0-80.0); Nucleated Red Blood Cells % 0.2 %; Platelet Count (auto) 208 10^3/uL (140-450); Red Blood Cells 4.88 10^6/uL (4.0-5.20); Red Cell Distribution Width 13.9 % (11.8-14.3)
[2023-11-12 12:34] LABS: INR 1.12 (0.9-1.15); Partial Thromboplastin Time 27.3 SEC (24.5-34.5); Prothrombin Time 11.8 sec (9.3-11.8)
[2023-11-12] MEDS: ONDANSETRON HCL 4 MG/2 ML VIAL ONE (12:48)
[2023-11-12] MEDS: ONDANSETRON HCL 4 MG/2 ML VIAL IV PRN (12:50)
[2023-11-12] MEDS: HYDROcodone-ACET 5/325MG TAB PO PRN (18:34)
[2023-11-12 21:06] LABS: INR 1.1 (0.9-1.15); Partial Thromboplastin Time 36.7 SEC (24.5-34.5); Prothrombin Time 11.6 sec (9.3-11.8)
[2023-11-12] MEDS: ATORVASTATIN 20 MG TAB PO SCH (22:08)
[2023-11-13 01:00] VITALS: BP 126/81; PULSE 77; RESP 18; TEMP 98.3; O2SAT 94
[2023-11-13] MEDS: MORPHINE SULFATE INJ 2 MG/ml SYRG IV PRN (01:02)
[2023-11-13 04:13] LABS: Chloride 108 mmol/L (98-107); Potassium 3.6 mmol/L (3.5-5.1); Sodium 139 mmol/L (136-145)
[2023-11-13 04:14] LABS: Anion Gap 7 (5-15); Calcium 9.1 mg/dL (8.7-10.4); Carbon Dioxide 24 mmol/L (20-30)
[2023-11-13 04:18] LABS: Hemoglobin 13.4 g/dL (12.2-16.2); Mean Corpuscular Volume 93.3 fL (80.0-100.0)
[2023-11-13 04:19] LABS: BUN/Creatinine Ratio 11.8 (10.0-20.0); Blood Urea Nitrogen 9 mg/dL (9-23); Glucose 107 mg/dL (74-106)
[2023-11-13 04:20] LABS: INR 1.14 (0.9-1.15); Partial Thromboplastin Time 48.5 SEC (24.5-34.5)
[2023-11-13 04:21] LABS: Basophils # (auto) 0 10 ^3/uL (0-0.2); Basophils % (auto) 0.5 % (0.0-2.0); Eosinophils # (auto) 0.1 10 ^3/uL (0-0.8); Eosinophils % (auto) 1.5 % (0.0-7.0); Hematocrit 40.9 % (36.0-46.0); Lymphocytes # (auto) 1.4 10 ^3/uL (0.4-5.4); Lymphocytes % (auto) 24.6 % (10.0-50.0); Mean Corpuscular Hemoglobin 30.5 pg (28.0-32.0); Mean Corpuscular Hgb Conc. 32.7 g/dL (32.0-36.0); Monocytes # (auto) 0.6 10 ^3/uL (0-1.3); Monocytes % (auto) 10.5 % (0.0-12.0); Neutrophils # (auto) 3.7 10 ^3/uL (1.6-8.6); Neutrophils % (auto) 62.9 % (37.0-80.0); Nucleated Red Blood Cells % 0.2 %; Platelet Count (auto) 194 10^3/uL (140-450); Red Blood Cells 4.38 10^6/uL (4.0-5.20); Red Cell Distribution Width 14.1 % (11.8-14.3); White Blood Cell 5.9 10^3/uL (4.4-10.8)
[2023-11-13] MEDS: HEPARIN DRIP/D5W 100UNITS/ML 250 ML IV SCH (04:45)
[2023-11-13 05:00] VITALS: BP 132/80; PULSE 78; RESP 18; TEMP 98.4; O2SAT 96
[2023-11-13 08:00] VITALS: PULSE 71
[2023-11-13] MEDS: FUROSEMIDE 20 MG/2 ML VIAL IV ONE (08:15)
[2023-11-13 09:00] VITALS: BP 130/76; PULSE 68; RESP 18; TEMP 98.1; O2SAT 96
[2023-11-13 12:34] LABS: INR 1.16 (0.9-1.15); Partial Thromboplastin Time 68.3 SEC (24.5-34.5); Prothrombin Time 12.2 sec (9.3-11.8)
== END 2023-11-13 13:00 | disposition short-term general hospital (02) | DRG 286 ==
LOC: CATH 07:26 → TELE 10:53 → TELE-WESTW 12:39
PROVIDERS: ADMIT Internal Medicine; ATTEND Internal Medicine
PROC: B211YZZ Fluoroscopy of Multiple Coronary Arteries using Other Contrast (ICD-10-PCS; principal; 2023-11-12)
PROC: 4A023N7 Measurement of Cardiac Sampling and Pressure, Left Heart, Percutaneous Approach (ICD-10-PCS; 2023-11-12)
DX: T82.855A Stenosis of coronary artery stent, initial encounter (principal); I50.31 Acute diastolic (congestive) heart failure; I25.119 Atherosclerotic heart disease of native coronary artery with unspecified angina pectoris; E11.9 Type 2 diabetes mellitus without complications; E78.5 Hyperlipidemia, unspecified; I11.0 Hypertensive heart disease with heart failure; E66.9 Obesity, unspecified; Y83.1 Surgical operation with implant of artificial internal device as the cause of abnormal reaction of the patient, or of later complication, without mention of misadventure at the time of the procedure; I25.82 Chronic total occlusion of coronary artery; Z88.8 Allergy status to other drugs, medicaments and biological substances; Z79.899 Other long term (current) drug therapy; Z98.61 Coronary angioplasty status; Z82.49 Family history of ischemic heart disease and other diseases of the circulatory system; Z83.3 Family history of diabetes mellitus; Z90.49 Acquired absence of other specified parts of digestive tract; Z79.82 Long term (current) use of aspirin; Z68.37 Body mass index [BMI] 37.0-37.9, adult; Y92.89 Other specified places as the place of occurrence of the external cause
CPT/HCPCS: 36415; 80048; 80053; 83036; 83880; 85025; 85610; 85730; 93458; 99152; G0378; J2001; J2250; J2405

== ENCOUNTER → 2024-02-03 | Outpatient (CLI) | payer MEDICARE, OTHER ==
[~2024-02-03] VITALS: Ht 167.6 cm; Wt 107.0 kg
[2024-02-03] MEDS: REGADENOSON 0.4 MG/5 ML SYRG IV ONE ×2 (11:06)
--- NOTE | 2024-02-03 17:27 | DVHSR ---
APPROVED REPORT Exam: Nuclear Stress Test Indication: Angina Stress Tech: Kenzie Walker Ht: 5 ft 6 in Wt: 236 lbs BSA: 2.15 m2 HR: 81 bpm BP: 124/91 mmHg BMI: 38.08 Rhythm: NSR Medical History Medical History: CABG, EF 55%, HTN, HLD Allergies: Reglan, Compazine Stress Test Details Stress Test: Pharmacologic stress testing performed using 0.4 mg of regadenoson per 5 mL given IV ov er 10 seconds. Reason for pharmacologic stress test: Angina. HR Resting HR: 81 bpmMax Heart Rate (APMHR): 158.405377 bpm Max HR Achieved: 111 bpmTarget HR (85% APMHR): 134.103908 bpm % of APMHR: 70.25 Recovery HR: 95 bpm BP Resting BP: 124/91 mmHg Recovery BP: 119/70 mmHg ECG Resting ECG: Sinus Rhythm Clinical Reason for Termination: Completed protocol Nurse Comments Received patient from Nuclear Medicine. Patient is A&O x4 and on RA. Patient is connected to beach lifeguard. PIV flushes well. Reviewed POC and patient verbalizes understanding and gives written consen t to test. Lexiscan stress test performed per protocol. flight readiness technician administered the Cardiolite. Patie nt tolerated well and vitals returned to baseline. Transferred to Nuclear Medicine with tech in stabl e condition. Stress ECG Conclusion Resting ECG shows normal sinus rhythm. At peak stress level no dynamic EKG changes was noted to sugg est ischemia. Resting images shows near normal uptake of radioactive tracer throughout the myocardium without evide nce of myocardial infarction. Stress images shows normal uptake of radioactive tracer throughout the myocardium without evidence of myocardial ischemia. Well-preserved left ventricular systolic function at 75% Impression: Negative stress test for ischemia, low risk study NM EXAM: Myocardial Perfusion REST/STRESS Imaging Protocol: Rest Tc-99m/Stress Tc-99m 1 day Resting Data Rest SPECT myocardial perfusion imaging was performed in supine position 60 minutes following the int ravenous injection of 15 mCi of Tc-99m Sestamibi. Time of rest injection: 0950 Time of rest imagin Administration Route: IV Administration Site: Left Arm Pharmacologic Stress Pharmacologic stress test was performed by injecting Regadenoson 0.4 mg IV push followed by the intra venous injection of 35 mCi of Tc-99m Sestamibi. Time of stress injection: 1101 Time of stress imagin Administration Route: IV Administration Site: Left Arm Gated Stress SPECT was performed 60 minutes after stress injection. The images were gated to evaluate regional wall motion and calculate left ventricular ejection fracti on. Stress only was performed in the Supine position. Nuclear Conclusion ECG Findings: negative for ischemia Clinical Findings: negative for ischemia Nuclear Findings: negative for ischemia Exercise Capacity: not assessed Left Ventricular Function: normal Risk Study: low Resting ECG shows normal sinus rhythm. At peak stress level no dynamic EKG changes was noted to sugg est ischemia. Resting images shows near normal uptake of radioactive tracer throughout the myocardium without evide nce of myocardial infarction. Stress images shows normal uptake of radioactive tracer throughout the myocardium without evidence of myocardial ischemia. Well-preserved left ventricular systolic function at 75% Impression: Negative stress test for ischemia, low risk study
== END | disposition home or self-care (01) ==
LOC: XYW 09:43
PROVIDERS: ATTEND Student in an Organized Health Care Education/Training Program
DX: I20.9 Angina pectoris, unspecified (principal); I10 Essential (primary) hypertension; E78.5 Hyperlipidemia, unspecified; Z95.1 Presence of aortocoronary bypass graft; Z88.8 Allergy status to other drugs, medicaments and biological substances; R07.9 Chest pain, unspecified
CPT/HCPCS: 78452; 93017; A9500; J2785

== ENCOUNTER → 2024-02-20 | Outpatient (CLI) | payer MEDICARE, OTHER ==
[2024-02-20 11:07] LABS: Basophils # (auto) 0 10 ^3/uL (0-0.2); Basophils % (auto) 0.2 % (0.0-2.0); Eosinophils # (auto) 0.1 10 ^3/uL (0-0.8); Eosinophils % (auto) 0.8 % (0.0-7.0); Hematocrit 39.1 % (36.0-46.0); Lymphocytes # (auto) 1.7 10 ^3/uL (0.4-5.4); Lymphocytes % (auto) 22.6 % (10.0-50.0); Mean Corpuscular Hemoglobin 28.8 pg (28.0-32.0); Mean Corpuscular Hgb Conc. 33.2 g/dL (32.0-36.0); Mean Corpuscular Volume 86.6 fL (80.0-100.0); Monocytes # (auto) 0.6 10 ^3/uL (0-1.3); Monocytes % (auto) 7.5 % (0.0-12.0); Neutrophils # (auto) 5.2 10 ^3/uL (1.6-8.6); Neutrophils % (auto) 68.9 % (37.0-80.0); Platelet Count (auto) 305 10^3/uL (140-450); Red Blood Cells 4.52 10^6/uL (4.0-5.20); Red Cell Distribution Width 15.3 % (11.8-14.3); White Blood Cell 7.6 10^3/uL (4.4-10.8)
[2024-02-20 11:18] LABS: Alanine Aminotransferase 25 U/L (7-40); Albumin 4.5 g/dL (3.2-4.8); Alkaline Phosphatase 91 U/L (46-116); Anion Gap 10 (5-15); Aspartate Aminotransferase 21 U/L (13-40); BUN/Creatinine Ratio 18.9 (10.0-20.0); Bilirubin, Total 0.4 mg/dL (0.2-1.0); Blood Urea Nitrogen 18 mg/dL (9-23); Calcium 9.8 mg/dL (8.7-10.4); Carbon Dioxide 24 mmol/L (20-31); Chloride 107 mmol/L (98-107); Potassium 3.9 mmol/L (3.5-5.1); Sodium 141 mmol/L (136-145); Total Protein 7.3 g/dL (5.7-8.2)
[2024-02-20 11:30] LABS: Glucose 113 mg/dL (74-106)
== END | disposition home or self-care (01) ==
LOC: LAB 10:11
PROVIDERS: ATTEND Internal Medicine
DX: R06.09 Other forms of dyspnea (principal)
CPT/HCPCS: 36415; 80053; 84439; 84443; 85025; 85379

== ENCOUNTER 2024-12-19 07:05 | Inpatient (IN) | payer MEDICARE, OTHER ==
[~2024-12-19] VITALS: Ht 167.6 cm; Wt 117.5 kg
[2024-12-19 07:47] LABS: Hematocrit 40.3 % (36.0-46.0); Hemoglobin 13.3 g/dL (12.2-16.2); Mean Corpuscular Hemoglobin 31.2 pg (28.0-32.0); Mean Corpuscular Volume 94.2 fL (80.0-100.0); Nucleated Red Blood Cells % 0.0 %
[2024-12-19 07:51] LABS: Chloride 106 mmol/L (98-107); Potassium 4.1 mmol/L (3.5-5.1); Sodium 139 mmol/L (136-145)
[2024-12-19 07:52] LABS: Anion Gap 7 (5-15); Carbon Dioxide 26 mmol/L (20-31)
[2024-12-19 07:53] LABS: Calcium 8.7 mg/dL (8.7-10.4)
[2024-12-19 07:57] LABS: BUN/Creatinine Ratio 10.5 (10.0-20.0); Blood Urea Nitrogen 9 mg/dL (9-23); Glucose 100 mg/dL (74-106)
--- NOTE | 2024-12-19 08:01 | DVH ---
CHEST RADIOGRAPH Indication: sob Technique: Single frontal view of the chest was obtained Comparison: XR CHEST 1 VIEW on DOS: 12/18/24 FINDINGS: Lines and Tubes: None Lungs: No focal consolidation. Pleura: No effusion. No pneumothorax. Cardiomediastinal contours: Unremarkable Bones: No acute osseous abnormality. Status post median sternotomy. IMPRESSION: 1. No acute cardiopulmonary disease.
--- NOTE | 2024-12-19 08:16 | ED.PDOC ---
HPI Comments 64 y.o female with PMHx of CAD, OR, HLD, HTN, CKF, presents to the ED for a chief complaint of chest pain associated with SOB, nausea and a generalized headache that started 2-3 days ago. Patient describes pain as sharp, constant and non radiating. She was seen at [facility] yesterday, unknown diagnosis s/p discharge but states she presents here given prior establish care and CABG done att his hospital. She denies any vomiting, fever, chills or leg swelling. Chief Complaint: Chest Pain Time Seen by MD: 07:45 Primary Care Provider: ALINA Reviewed Notes: Nurses Notes, Medications, Allergies Allergies: Coded Allergies: Metoclopramide (Verified Allergy, Unknown, 02/03/24) Prochlorperazine (Verified Allergy, Unknown, 02/03/24) Home Meds Reported Medications Atorvastatin Calcium (ATORVASTATIN CALCIUM) 20 Mg Tab, 1 TAB PO DAILY for HIGH CHOLESTEROL, #30 TAB 5 Refills 11/08/23 Aspirin (Aspir-81) 81 Mg Tab, 81 MG PO DAILY, TAB 05/29/22 Pantoprazole Sodium Sesquihydr (Protonix) 40 Mg Tab, 40 MG PO DAILY for GERD, #30 TAB 05/29/22 Metoprolol Tartrate (Metoprolol Tartrate) 25 Mg Tab, 25 MG PO BID for HTN, TAB 05/29/22 Information Source: Patient Mode of Arrival: Ambulatory Severity: Moderate Timing: Days Duration: Since onset Location: Substernal Radiation: No Radiation Quality: Sharp Onset: At Rest Cardiac Risk Factors: Hyperlipidemia, HTN PE Risk Factors: None History of: Similar pain in past, OR Modifying Factors: Nothing Associated Signs and Symptoms: SOB, N/V Past Medical History PAST MEDICAL HISTORY: Angina, Arthritis, Asthma, CAD, CKF, GERD, High Lipids, HTN, OR Surgical History: CABG, Cholecystectomy, Hysterectomy, PTCA PSYCHIATRIC NP History: No Pertinent PSYCHIATRIC NP History Family History Family History: No family hx of Cancer, No family hx of DM, No family hx of Heart allison, No family hx of HTN Social History Smoker: Cigarettes, Less Than 1 Pack/Day Alcohol: Occasionally Drugs: Denies Drug Use Lives In: Home Constitutional: denies: chills, diaphoresis, fatigue, fever, malaise, sweats, weakness, others EENTM: denies: blurred vision, double vision, ear bleeding, ear discharge, ear drainage, ear pain, ear ringing, eye pain, eye redness, hearing loss, mouth pain, mouth swelling, nasal discharge, nose bleeding, nose congestion, nose pain, photophobia, tearing, throat pain, throat swelling, voice changes, others Respiratory: reports: SOB at rest, shortness of breath; denies: cough, hemoptysis, orthopnea, SOB with excertion, stridor, wheezing, others Cardiovascular: reports: chest pain; denies: dizzy spells, diaphoresis, Dyspnea on exertion, edema, irregular heart beat, left arm pain, lightheadedness, palpitations, PND, syncope, others Gastrointestinal: reports: nausea; denies: abdomen distended, abdominal pain, blood streaked bowels, constipated, diarrhea, dysphagia, difficulty swallowing, hematemesis, melena, poor appetite, poor fluid intake, rectal bleeding, rectal pain, vomiting, others Genitourinary: denies: abnormal vagina bleeding, burning, dyspareunia, dysuria, flank pain, frequency, hematuria, incontinence, pain, , vagina discharge, urgency, others Neurological: reports: headache; denies: dizziness, fainting, left sided numbness, left sided weakness, numbness, paresthesia, pre-existing deficit, right sided numbness, right sided weakness, seizure, speech problems, tingling, tremors, weakness, others Musculoskeletal: denies: back pain, gout, joint pain, joint swelling, muscle pain, muscle stiffness, neck pain, others Integumetry: denies: bruises, change in color, change in hair/nails, dryness, laceration, lesions, lumps, rash, wounds, others Allergic/Immunocompromised: denies: Difficulty Healing, Frequent Infections, Hives, Itching, others Hematologic/Lymphatic: denies: anemia, blood clots, easy bleeding, easy bruising, swollen glands, others Endocrine: denies: excessive hunger, excessive sweating, excessive thirst, excessive urination, flushing, intolerance to cold, intolerance to heat, unexplained weight gain, unexplained weight loss, others Psychiatric: denies: anxiety, bipolar disorder, depression, hopeless, panic disorder, schizophrenia, sleepless, suicidal, others All Other Systems: Reviewed and Negative Physical Exam General Appearance: Moderate Distress HEENT: Normal ENT Inspection, Pharynx Normal, TMs Normal Neck: Full Range of Motion, Non-Tender, Normal, Normal Inspection Respiratory: Chest Non-Tender, Lungs Clear, No Accessory Muscle Use, No Respiratory Distress, Normal Breath Sounds Cardiovascular: No Edema, No JVD, No Murmur, No Gallop, Normal Peripheral Pulses, Regular Rate/Rhythm Breast Exam: Deferred Gastrointestinal: No Organomegaly, Non Tender, No Pulsatile Mass, Normal Bowel Sounds, Soft Genitalia: Deferred Pelvic: Deferred Rectal: Deferred Extremities: No calf tenderness, Normal capillary refill, Normal inspection, Normal range of motion, Non-tender, No pedal edema Musculoskeletal : Apperance: Normal Neurologic: Alert, bid writer II-XII nml as Tested, No Motor Deficits, Normal Affect, Normal Mood, No Sensory Deficits Cerebellar Function: NOT DONE Reflexes: NOT DONE Skin: Dry, Normal Color, Warm Peripheral Pulses: 3+ Radial (R), 3+ Radial (L) Lymphatic: No Adenopathy EKG EKG : Pulse Rate (adult): 74 Cardiac Rhythm: Paced Was a procedure done? Was a procedure done?: No CP Differential Dx Differential Diagnosis: A-fib, A-Flutter, Angina, Anxiety / Panic Attack, Atrial Dysrhythmia, Electrolyte Disorder Differential Diagnosis: Angina, Aortic dissection, Costochondritis, Pericarditis X-Ray, Labs, Meds, VS Vital Signs Date Time Temp Pulse Resp B/P (MAP) Pulse Ox O2 Delivery O2 Flow Rate FiO2 12/19/24 09:25 66 20 131/91 12/19/24 09:12 66 20 97 Room Air* 0 21 12/19/24 09:12 98.0 66 20 131/91 (104) 97 98.0 12/19/24 08:16 74 12/19/24 07:07 97.8 76 20 146/70 98 97.8 Lab Test 12/19/24 08:53 12/19/24 08:46 12/19/24 07:27 Range/Units Urine Color Yellow Yellow Urine Clarity Hazy H Clear Urine pH 5.0 5.0-9.0 Urine Specific [place] 1.022 1.001-1.035 Urine Protein Negative Negative Urine Ketones Negative Negative Urine Blood Negative Negative /uL Urine Nitrite Negative Negative Urine Bilirubin Negative Negative Urine Urobilinogen Normal Negative mg/dL Urine Leukocyte Esterase 3+ Negative /uL Urine RBC 4 0 - 4 /hpf Urine Microscopic WBC 7 H 0-5 /HPF Urine Squamous Epithelial Cells Few <5 /hpf Urine Bacteria Few H None Seen /hpf Urine Glucose Normal Normal mg/dL Troponin I High Sensitivity 14 15 </=34 ng/L White Blood Count 5.9 4.4-10.8 10^3/uL Red Blood Count 4.28 4.0-5.20 10^6/uL Hemoglobin 13.3 12.2-16.2 g/dL Hematocrit 40.3 36.0-46.0 % Mean Corpuscular Volume 94.2 80.0-100.0 fL Mean Corpuscular Hemoglobin 31.2 28.0-32.0 pg Mean Corpuscular Hemoglobin Concent 33.1 32.0-36.0 g/dL Red Cell Distribution Width 14.5 H 11.8-14.3 % Platelet Count 207 140-450 10^3/uL Mean Platelet Volume 8.6 6.9-10.8 fL Neutrophils (%) (Auto) 66.8 37.0-80.0 % Lymphocytes (%) (Auto) 20.0 10.0-50.0 % Monocytes (%) (Auto) 11.4 0.0-12.0 % Eosinophils (%) (Auto) 1.5 0.0-7.0 % Basophils (%) (Auto) 0.3 0.0-2.0 % Neutrophils # (Auto) 3.9 1.6-8.6 10 ^3/uL Lymphocytes # (Auto) 1.2 0.4-5.4 10 ^3/uL Monocytes # (Auto) 0.7 0-1.3 10 ^3/uL Eosinophils # (Auto) 0.1 0-0.8 10 ^3/uL Basophils # (Auto) 0 0-0.2 10 ^3/uL Nucleated Red Blood Cells 0.0 % Sodium Level 139 136-145 mmol/L Potassium Level 4.1 3.5-5.1 mmol/L Chloride Level 106 98-107 mmol/L Carbon Dioxide Level 26 20-31 mmol/L Anion Gap 7 5-15 Blood Urea Nitrogen 9 9-23 mg/dL Creatinine 0.86 0.550-1.02 mg/dL Glomerular Filtration Rate Calc 76 >90 mL/min BUN/Creatinine Ratio 10.5 10.0-20.0 Serum Glucose 100 74-106 mg/dL Calcium Level 8.7 8.7-10.4 mg/dL Current Medications Medications (Trade) Dose Ordered Sig/Emily Route Start Time Stop Time Status Last Admin Morphine Sulfate 2 mg ONCE ONCE IV 12/19/24 08:15 12/19/24 08:16 DC 12/19/24 09:25 Ondansetron HCl (Zofran) 4 mg ONCE ONCE IV 12/19/24 08:15 12/19/24 08:16 DC 12/19/24 09:26 [place] [id number] Ph: [phone] DIAGNOSTIC IMAGING Diagnostic Imaging Report : [id number] Signed PATIENT: SOCRATES ACEVEDO ACCT: [id number] UNIT: [id number] : 1960 LOC: ER ROOM / BED: / AGE / SEX: 64 / F ADM STATUS: REG ER SERVICE 7 ORDERING PHYSICIAN: SHANNON TREVINO MD PROCEDURE(s): CXRP - CHEST PORTABLE REASON: sob ORDER NUMBER(s): [id number], ACCESSION NUMBER(s): [id number] CHEST RADIOGRAPH Indication: sob Technique: Single frontal view of the chest was obtained Comparison: XR CHEST 1 VIEW on DOS: 12/18/24 FINDINGS: Lines and Tubes: None Lungs: No focal consolidation. Pleura: No effusion. No pneumothorax. Cardiomediastinal contours: Unremarkable Bones: No acute osseous abnormality. Status post median sternotomy. IMPRESSION: 1. No acute cardiopulmonary disease. ATED BY: TUNDE MARTELL MD DICTATED DATE/TIME: 12/19/24757 SIGNED BY: TUNDE MARTELL MD SIGNED DATE/TIME: 12/19/24757 CC: Patient alert. Came in because of chest pain. History of coronary artery disease. Vitals stable. Answering questions. WBC within normal limits. Hemoglobin within normal limits. EKG reviewed does not show any acute changes. Continues to have chest pain. Explained to the patient that she will be admitted for further studies. Time of 1ST Reevaluation: 08:12 Reevaluation 1ST: Unchanged Patient Education/Counseling: Diagnosis, Treatment, Prognosis Family Education/Counseling: No Family Present SEPSIS Sepsis Screen Date sepsis recognized/suspect: Dec 19, 2024 Time Sepsis recognized/suspect: 07 Recent Procedure: No On Antibiotic Therapy: No Respiratory Rate >20: No Heart Rate >90: No Temp<36 C (96.8 F) or >38.3 C: No SBP <90 or MAP <65 mmHG: No New Acute Mental Status Change: No Is the patient on CPAP, BIPAP,: No Physician Orders Chest Portable (12/19/24 07:08) Troponin-I Hs (12/19/24 10:08) Vital Signs Date Time Temp Pulse Resp B/P (MAP) Pulse Ox O2 Delivery O2 Flow Rate FiO2 12/19/24 09:25 66 20 131/91 12/19/24 09:12 66 20 97 Room Air* 0 21 12/19/24 09:12 98.0 66 20 131/91 (104) 97 98.0 12/19/24 08:16 74 12/19/24 07:07 97.8 76 20 146/70 98 97.8 Laboratory Tests Test 12/19/24 07:27 White Blood Count 5.9 10^3/uL (4.4-10.8) Medications Medications Dose Ordered Sig/Emily Route Start Time Stop Time Status Last Admin Dose Admin Morphine Sulfate 2 mg ONCE ONCE IV 12/19/24 08:15 12/19/24 08:16 DC 12/19/24 09:25 Ondansetron HCl 4 mg ONCE ONCE IV 12/19/24 08:15 12/19/24 08:16 DC 12/19/24 09:26 Departure 1 Departure Time of Disposition: 09:14 Impression: Primary Impression: Chest pain of unknown etiology Disposition: ADMITTED INPATIENT Admit to: Med Surg Condition: Guarded Critical Care Note Critical Care Time?: No Stability Stability form required: No Heart Score Heart Score: Heart Score Response (Comments) Value History Slightly Suspicious 0 EKG Normal 0 Age 45-64 1 Risk Factors >3 or Hx ASHD 2 Troponin Normal limit 0 Total 3 I personally scribed for SHANNON TREVINO MD ([email or web address]) on 12/19/24 at 08:16. Electronically submitted by Saundra Hoyt ([facility]). I personally scribed for SHANNON TREVINO MD ([email or web address]) on 11/1/25 at 10:31. Electronically submitted by Jonathan Coon ([email or web address]). I personally scribed for SHANNON TREVINO MD ([email or web address]) on 12/19/24 at 10:32. Electronically submitted by Jonathan Coon ([email or web address]). SHANNON TREVINO MD Dec 19, 2024 08:16
[2024-12-19 09:02] LABS: Urine Protein, UAD Negative (Negative)
[2024-12-19 09:12] VITALS: PULSE 66; RESP 20; O2SAT 97
[2024-12-19] MEDS: MORPHINE SULFATE INJ 2 MG/ml SYRG IV ONE (09:25)
[2024-12-19] MEDS: ONDANSETRON HCL 4 MG/2 ML VIAL IV ONE (09:26)
[2024-12-19] MEDS ORDERED: ACETAMINOPHEN 325 MG TAB PO PRN (10:00)
[2024-12-19] MEDS ORDERED: NITROGLYCERIN 0.4 MG SL TAB SL PRN (10:00)
[2024-12-19] MEDS ORDERED: MORPHINE SULFATE INJ 2 MG/ml SYRG IV PRN (10:00)
[2024-12-19] MEDS: ENOXAPARIN SOD 40 MG/0.4 ML SYRINGE SC SCH (10:27)
[2024-12-19] MEDS: SODIUM CHLOR 0.9% PF (SALINE LOCK) 10ML VIAL/SYR IV SCH (10:33)
--- NOTE | 2024-12-19 10:41 | DVHHPRES ---
History of Present Illness Resident Creating Document: ANKIT LORENZ RESIDENT History of Present Illness 64-year-old patient with a history of bypass surgery presenting with chest pain lasting 4 days. The patient reports being unable to sleep for approximately 4 days and visited a hospital in [place] yesterday but was discharged home. She returned today due to persistent inability to sleep and ongoing chest pain. She expresses concern that her symptoms may be related to her cardiac history. The chest pain is described as pressure on both sides that extends all the way around. The patient underwent quadruple bypass surgery on November 15 of last year, with 3 grafts on one side and 1 on the other, and reports still being sore from the procedure. She rates her current pain intensity as 10 out of 10 and states she has not slept all night due to the pain. The patient describes a burning sensation in her heart and reports shortness of breath symptoms. The patient was given morphine yesterday, but it was ineffective in providing pain relief. She has a documented urinary tract infection. Her blood pressure becomes elevated when she is experiencing pain, and it was significantly high yesterday. The patient denies having diabetes , She reports recent smoking cessation, having not smoked for 2 days, though she previously smoked a few cigarettes daily after work. She denies significant alcohol use and denies drug or marijuana use. She lives with her granddaughter. Past Social History - Substance Use: Recently quit smoking 2 days ago, previously smoked a few cigar ettes daily after work, minimal alcohol use, denies recreational drug use including marijuana - Living Situation: Lives with granddaughter, daughter is frequently present and provides support Review of Systems Review of Systems Review of Systems General: Positive for insomnia, unable to sleep for 4 days. Cardiovascular: Positive for chest pressure and burning sensation. Respiratory: Negative for shortness of breath. Endocrine: Negative for diabetes. Allergies: Coded Allergies: Metoclopramide (Verified Allergy, Unknown, 02/03/24) Prochlorperazine (Verified Allergy, Unknown, 02/03/24) Medications Current Medications Medications Dose Ordered Sig/Emily Route Start Time Stop Time Status Last Admin Dose Admin Sodium Chloride 10 ml Q8HR IV 12/19/24 14:00 12/19/24 10:33 10 ML Enoxaparin Sodium 40 mg DAILY SC 12/19/24 10:00 12/19/24 10:27 40 MG Acetaminophen 650 mg Q6HP PRN PO 12/19/24 10:00 Nitroglycerin 0.4 mg Q5MINP PRN SL 12/19/24 10:00 Morphine Sulfate 2 mg Q30M PRN IV 12/19/24 10:00 Ceftriaxone Sodium 50 ml @ 100 mls/hr DAILY IV 12/19/24 10:00 12/19/24 10:32 100 MLS/HR Hydromorphone HCl 0.5 mg Q6HP PRN IV 12/19/24 10:00 Exam Vital Signs Vital Signs Date Time Temp Pulse Resp B/P (MAP) Pulse Ox O2 Delivery O2 Flow Rate FiO2 12/19/24 09:25 66 20 131/91 12/19/24 09:12 97 Room Air* 0 21 12/19/24 09:12 98.0 98.0 Exam GENERAL: Not in acute distress. HEENT: EOMI, Moist mucous membranes. No scleral icterus. No cervical lymphadenopathy. LUNGS: Clear to auscultation bilaterally. No accessory muscle use. CARDIOVASCULAR: Regular rate and rhythm. No murmur. No JVD. ABDOMEN: Soft, nontender and nondistended. No palpable masses. EXTREMITIES: No edema. Nontender. SKIN: No rashes or lesions. Warm. NEUROLOGIC: Alert and oriented X3 Labs/Xrays Labs Test 12/19/24 08:53 12/19/24 08:46 12/19/24 07:27 Range/Units Urine Color Yellow Yellow Urine Clarity Hazy H Clear Urine pH 5.0 5.0-9.0 Urine Specific [place] 1.022 1.001-1.035 Urine Protein Negative Negative Urine Ketones Negative Negative Urine Blood Negative Negative /uL Urine Nitrite Negative Negative Urine Bilirubin Negative Negative Urine Urobilinogen Normal Negative mg/dL Urine Leukocyte Esterase 3+ Negative /uL Urine RBC 4 0 - 4 /hpf Urine Microscopic WBC 7 H 0-5 /HPF Urine Squamous Epithelial Cells Few <5 /hpf Urine Bacteria Few H None Seen /hpf Urine Glucose Normal Normal mg/dL Troponin I High Sensitivity 14 </=34 ng/L White Blood Count 5.9 4.4-10.8 10^3/uL Red Blood Count 4.28 4.0-5.20 10^6/uL Hemoglobin 13.3 12.2-16.2 g/dL Hematocrit 40.3 36.0-46.0 % Mean Corpuscular Volume 94.2 80.0-100.0 fL Mean Corpuscular Hemoglobin 31.2 28.0-32.0 pg Mean Corpuscular Hemoglobin Concent 33.1 32.0-36.0 g/dL Red Cell Distribution Width 14.5 H 11.8-14.3 % Platelet Count 207 140-450 10^3/uL Mean Platelet Volume 8.6 6.9-10.8 fL Neutrophils (%) (Auto) 66.8 37.0-80.0 % Lymphocytes (%) (Auto) 20.0 10.0-50.0 % Monocytes (%) (Auto) 11.4 0.0-12.0 % Eosinophils (%) (Auto) 1.5 0.0-7.0 % Basophils (%) (Auto) 0.3 0.0-2.0 % Neutrophils # (Auto) 3.9 1.6-8.6 10 ^3/uL Lymphocytes # (Auto) 1.2 0.4-5.4 10 ^3/uL Monocytes # (Auto) 0.7 0-1.3 10 ^3/uL Eosinophils # (Auto) 0.1 0-0.8 10 ^3/uL Basophils # (Auto) 0 0-0.2 10 ^3/uL Nucleated Red Blood Cells 0.0 % Sodium Level 139 136-145 mmol/L Potassium Level 4.1 3.5-5.1 mmol/L Chloride Level 106 98-107 mmol/L Carbon Dioxide Level 26 20-31 mmol/L Anion Gap 7 5-15 Blood Urea Nitrogen 9 9-23 mg/dL Creatinine 0.86 0.550-1.02 mg/dL Glomerular Filtration Rate Calc 76 >90 mL/min BUN/Creatinine Ratio 10.5 10.0-20.0 Serum Glucose 100 74-106 mg/dL Calcium Level 8.7 8.7-10.4 mg/dL SEPSIS Sepsis Screen Date sepsis recognized/suspect: Dec 19, 2024 Time Sepsis recognized/suspect: 708 Recent Procedure: No On Antibiotic Therapy: No Respiratory Rate >20: No Heart Rate >90: No Temp<36 C (96.8 F) or >38.3 C: No SBP <90 or MAP <65 mmHG: No New Acute Mental Status Change: No Is the patient on CPAP, BIPAP,: No Physician Orders Chest Portable (12/19/24 07:08) Troponin-I Hs (12/19/24 10:08) Admit (12/19/24 09:47) Code Status (12/19/24 09:47) Sodium Chloride Lock (Saline Lock Ns) (12/19/24 14:00) Enoxaparin Sodium (Lovenox) (12/19/24 10:00) Complete Blood Count (12/20/24 04:00) Comprehensive Metabolic Panel (12/20/24 04:00) Cardiac Diet-2gna,Lofat,Lochol (12/19/24 Lunch) Acetaminophen Tablet (Tylenol Tablet) (12/19/24 10:00) Nitroglycerin Sublingual (Ntrostat Subli (12/19/24 10:00) Morphine Sulfate Injection (12/19/24 10:00) Oxygen By Nasal Cannula (12/19/24 09:47) Stat Ekg For Chest Pain (12/19/24 09:47) Notify Of Changes From Base (12/19/24 09:47) Research Professional For 24 Hours (12/19/24 09:47) Emergency Dysrhythmia Protocol (12/19/24 09:47) Rhythm Strips Once Every Shift (12/19/24 09:47) Ceftriaxone 1gm/50ml (Rocephin) (12/19/24 10:00) Hydromorphone Injection (Dilaudid Inject (12/19/24 10:00) Covid19 Antigen Emily (12/19/24 ) Rapid Influenza A&B (12/19/24 10:30) Drug Screen (12/19/24 10:30) * Cardiology Consult (12/19/24 10:30) Echo 2d Mode Cardiac Dop (12/19/24 10:31) Vital Signs Date Time Temp Pulse Resp B/P (MAP) Pulse Ox O2 Delivery O2 Flow Rate FiO2 12/19/24 09:25 66 20 131/91 12/19/24 09:12 66 20 97 Room Air* 0 21 12/19/24 09:12 98.0 66 20 131/91 (104) 97 98.0 12/19/24 08:16 74 12/19/24 07:07 97.8 76 20 146/70 98 97.8 Laboratory Tests Test 12/19/24 07:27 White Blood Count 5.9 10^3/uL (4.4-10.8) Medications Medications Dose Ordered Sig/Emily Route Start Time Stop Time Status Last Admin Dose Admin Ceftriaxone Sodium 50 ml @ 100 mls/hr DAILY IV 12/19/24 10:00 12/19/24 10:32 100 MLS/HR Enoxaparin Sodium 40 mg DAILY SC 12/19/24 10:00 12/19/24 10:27 40 MG Morphine Sulfate 2 mg ONCE ONCE IV 12/19/24 08:15 12/19/24 08:16 DC 12/19/24 09:25 2 MG Ondansetron HCl 4 mg ONCE ONCE IV 12/19/24 08:15 12/19/24 08:16 DC 12/19/24 09:26 4 MG Sodium Chloride 10 ml Q8HR IV 12/19/24 14:00 12/19/24 10:33 10 ML Assessment/Plan Assessment/Plan # chest pain, rule out ACS # history of CAD, status post CABG - troponin is negative - Additional cardiac testing to be performed - Cardiology consultation for evaluation and management - continue aspirin 81 mg, atorvastatin 20 mg, metoprolol 25 mg # Urinary tract infection - continue Rocephin IV 1 g daily # Hypertension - Monitor blood pressure during admission # GERD - continue Protonix 40 mg daily Goal of care discussed with patient for 32 minutes: Full code Plan discussed with Dr. Mas Plan discussed with: Patient My Orders Orders - ANKIT LORENZ RESIDENT Procedure Category Date Status Time Admit ADMIT 12/19/24 Transmitted 09:47 Code Status CODE 12/19/24 Transmitted 09:47 Sodium Chloride Lock PHA 12/19/24 In Process (Saline Lock Ns) 14:00 Enoxaparin Sodium PHA 12/19/24 In Process (Lovenox) 10:00 Complete Blood Count LAB 12/20/24 Verified 04:00 Comprehensive LAB 12/20/24 Verified Metabolic Panel 04:00 Cardiac DIET 12/19/24 Transmitted Diet-2gna,Lofat,Lochol Lunch Acetaminophen Tablet PHA 12/19/24 In Process (Tylenol Tablet) 10:00 Nitroglycerin PHA 12/19/24 In Process Sublingual (Ntrostat 10:00 Morphine Sulfate PHA 12/19/24 In Process Injection 10:00 Oxygen By Nasal RT 12/19/24 Transmitted Cannula 09:47 Stat Ekg For Chest SPRING 12/19/24 In Process Pain 09:47 Notify Md Of Changes [facility] 12/19/24 In Process From Base 09:47 Research Professional For [facility] 12/19/24 In Process 24 Hours 09:47 Emergency Dysrhythmia [facility] 12/19/24 In Process Protocol 09:47 Rhythm Strips Once [facility] 12/19/24 In Process Every Shift 09:47 Ceftriaxone 1gm/50ml PHA 12/19/24 In Process (Rocephin) 10:00 Hydromorphone PHA 12/19/24 In Process Injection (Dilaudid 10:00 Covid19 Antigen Emily LAB 12/19/24 Logged Rapid Influenza A&B LAB 12/19/24 Logged 10:30 Drug Screen LAB 12/19/24 In Process 10:30 * Cardiology Consult CONS 12/19/24 Transmitted 10:30 Echo 2d Mode Cardiac US 12/19/24 Logged DOP 10:31 Date of Service: Dec 19, 2024 Billing Provider: KARY MAS MD Common Visit Codes: [id number] INP/OBS CARE (HIGH) Secondary Visit Codes: 67366-[id number] CARE PLAN 30 MINUTES ANKIT LORENZ RESIDENT Dec 19, 2024 10:40
[2024-12-19 11:01] LABS: Benzodiazephine Screen, Urine Neg (NEGATIVE); Opiate Scree,Urine Neg (NEGATIVE)
[2024-12-19 11:05] LABS: Amphetamine Screen, Urine Neg (NEGATIVE); Barbiturate Scree,Urine Neg (NEGATIVE); Cannabinoid Screen, Urine Neg (NEGATIVE); Cocaine Screen, Urine Neg (NEGATIVE); Phencyclidine Screen, Urine Neg (NEGATIVE)
--- NOTE | 2024-12-19 11:52 | ECG ---
[facility] Test Date: 2024-12-19 Test Time: 07:10:37 Pat Name: SOCRATES ACEVEDO Department: Room: [facility]24[facility] Gender: F Photo Stylist: ANITA : 1960 Requested By: SHANNON TREVINO Order Number: [id number] Reading MD: Haroldo Small Measurements Intervals [place] Rate: 74 P: 98 OR: 167 QRS: 59 QRSD: 89 T: 88 QT: 402 QTc: 446 Interpretive Statements Pacemaker spikes or artifacts Sinus rhythm Left atrial enlargement Nonspecific T abnormalities, lateral leads Artifact in lead(s) II,III,aVF and baseline wander in lead(s) V3 Electronically Signed On 12-22-2024 13:31:08 PST by Haroldo Small Please click the below link to view image of tracing.
[2024-12-19 13:08] VITALS: BP 131/90; PULSE 60; RESP 16; TEMP 97.9; O2SAT 93
[2024-12-19] MEDS: HYDROmorphone HCL 2 MG/ML VL/or syr IV PRN (13:43)
[2024-12-19 15:35] LABS: Triglycerides 71.0 mg/dL (< 150)
[2024-12-19 15:36] LABS: Magnesium 1.6 mg/dL (1.6-2.6)
[2024-12-19 15:37] LABS: Cholesterol 175.0 mg/dL (< 200)
[2024-12-19 15:39] LABS: HDL Cholesterol 71.0 mg/dL (40-59)
[2024-12-19 16:54] VITALS: BP 143/86; PULSE 68; RESP 17; TEMP 98.1; O2SAT 96
--- NOTE | 2024-12-19 17:40 | DVHINCON2 ---
Date Seen: Dec 19, 2024 Referring Physician MD Natividad resident Reason for Consultation Status post CABG with chest pain History of Present Illness This is a 64-year-old female patient who presents to the emergency room with chief complaint of chest pain for four days. The patient describes the pain as unprovoked, pressure-like in nature, intermittent, generalized across her chest with associated shortness of breath. She reports relief with sublingual nitroglycerin. Initial twelve lead electrocardiogram reveals normal sinus rhythm with baseline wander and artifact in multiple leads. A repeat twelve lead electrocardiogram reveals sinus bradycardia with T-wave inversion to lateral leads. Initial troponin level of 15ng/L with flat trend thereafter. Significant past medical history includes severe coronary artery disease status post quadruple vessel CABG in 2023, previous PTCA X 1 ONEL, hypertension, dyslipidemia, tobacco use and obesity. The patient follows up with a band edger in the outpatient setting, but is unable to recall the name at this time. Past Medical History Past medical history reviewed. No other significant than mentioned above. Past Surgical History Quadruple vessel CABG on November 16, 2023 Cholecystectomy Hysterectomy Left knee replacement Four back surgeries Family History: Family history: Cardiovascular disease G8 BROTHER G8 SISTER Family history: Diabetes mellitus G8 MOTHER, Name: Melissa Max, Born 04/14/1922, , Age: 75, Race: BLACK OR G8 FATHER Family history: Hypertension G8 MOTHER, Name: Melissa Max, Born [birth year]/1922, , Age: 75, Race: BLACK OR G8 FATHER Family History Family history reviewed. Social History Patient has a 25 pack-year history, smokes approximately half a pack per day Denies illicit drug use Denies alcohol use Allergies: Coded Allergies: Metoclopramide (Verified Allergy, Unknown, 02/03/24) Prochlorperazine (Verified Allergy, Unknown, 02/03/24) Home Meds Reported Medications Atorvastatin Calcium (ATORVASTATIN CALCIUM) 20 Mg Tab, 1 TAB PO DAILY for HIGH CHOLESTEROL, #30 TAB 5 Refills 11/08/23 Aspirin (Aspir-81) 81 Mg Tab, 81 MG PO DAILY, TAB 05/29/22 Pantoprazole Sodium Sesquihydr (Protonix) 40 Mg Tab, 40 MG PO DAILY for GERD, #30 TAB 05/29/22 Metoprolol Tartrate (Metoprolol Tartrate) 25 Mg Tab, 25 MG PO BID for HTN, TAB 05/29/22 Home Meds Home medications reviewed. Current Medications Current Medications Medications (Trade) Dose Ordered Sig/Emily Route PRN Reason Start Time Stop Time Status Last Admin Sodium Chloride (Saline Lock Ns) 10 ml Q8HR IV 12/19/24 14:00 12/19/24 10:33 Enoxaparin Sodium (Lovenox) 40 mg DAILY SC 12/19/24 10:00 12/19/24 10:27 Acetaminophen (Tylenol Tablet) 650 mg Q6HP PRN PO PAIN SCALE 1-3 OR TEMP>100.4 12/19/24 10:00 Nitroglycerin (Ntrostat Sublingual) 0.4 mg Q5MINP PRN SL FOR CHEST PAIN 12/19/24 10:00 Morphine Sulfate 2 mg Q30M PRN IV FOR CHEST PAIN 12/19/24 10:00 Ceftriaxone Sodium 50 ml @ 100 mls/hr DAILY IV 12/19/24 10:00 12/19/24 10:32 Hydromorphone HCl (Dilaudid Injection) 0.5 mg Q6HP PRN IV PAIN SCALE 7 THRU 10 12/19/24 10:00 12/19/24 13:43 Aspirin (Ecotrin Enteric Coated Tablet) 81 mg DAILY PO 12/20/24 10:00 Atorvastatin Calcium (Lipitor) 20 mg DAILY PO 12/20/24 10:00 Metoprolol Tartrate (Lopressor Tablet) 25 mg BID PO 12/19/24 22:00 Pantoprazole Sodium (Protonix Tablet) 40 mg DAILY PO 12/20/24 10:00 Review of Systems Constitutional: No symptom reported Ears, Nose, & Throat: No symptom reported Eyes: No symptom reported Neurological: No symptoms reported Pulmonary/Respiratory: No symptoms reported Cardiovascular: Chest pain Gastrointestinal: No symptom reported Genitourinary: No symptom reported Musculoskeletal: No symptom reported Skin: No symptom reported Psychiatric: No symptom reported Endocrine: No symptom reported Hematologic/Lymphatic: No symptom reported Vital Signs Vital Signs Date Time Temp Pulse Resp B/P (MAP) Pulse Ox O2 Delivery O2 Flow Rate FiO2 12/19/24 16:54 98.1 68 17 143/86 (105) 96 98.1 12/19/24 13:08 Room Air* 0 21 Physical Exam General Appearance: Cooperative. Well-developed. Well-nourished. No acute distress. Pulmonary/Respiratory: Clear, bilateral breaths sounds. Cardiovascular/Chest: Regular rate and rhythm. Peripheral Pulses: 2+ Radial (R). 2+ Radial (L). 2+ Pedal (R). 2+ Pedal (L) Abdominal Exam: Normal bowel sounds. Ankle Exam: Negative ankle edema Lower extremities: Negative lower extremity edema Neuro/Mental Status: A/OX4, coherent. Thoughts/Psych: Normal thought pattern. Appropriate mood and affect. Good judgment and insight. Appearance: No acute distress. Skin Exam: Normal inspection. Normal color. Warm and dry. Labs/Diagnostic Data Labs Test 12/19/24 10:54 12/19/24 08:53 12/19/24 07:27 Range/Units Troponin I High Sensitivity 14 </=34 ng/L Urine Color Yellow Yellow Urine Clarity Hazy H Clear Urine pH 5.0 5.0-9.0 Urine Specific [place] 1.022 1.001-1.035 Urine Protein Negative Negative Urine Ketones Negative Negative Urine Blood Negative Negative /uL Urine Nitrite Negative Negative Urine Bilirubin Negative Negative Urine Urobilinogen Normal Negative mg/dL Urine Leukocyte Esterase 3+ Negative /uL Urine RBC 4 0 - 4 /hpf Urine Microscopic WBC 7 H 0-5 /HPF Urine Squamous Epithelial Cells Few <5 /hpf Urine Bacteria Few H None Seen /hpf Urine Glucose Normal Normal mg/dL Urine Opiates Screen Neg NEGATIVE Urine Fentanyl Screen Neg NEGATIVE Urine Barbiturates Screen Neg NEGATIVE Urine Phencyclidine Screen Neg NEGATIVE Urine Amphetamines Screen Neg NEGATIVE Urine Benzodiazepines Screen Neg NEGATIVE Urine Cocaine Screen Neg NEGATIVE Urine Cannabinoids Screen Neg NEGATIVE White Blood Count 5.9 4.4-10.8 10^3/uL Red Blood Count 4.28 4.0-5.20 10^6/uL Hemoglobin 13.3 12.2-16.2 g/dL Hematocrit 40.3 36.0-46.0 % Mean Corpuscular Volume 94.2 80.0-100.0 fL Mean Corpuscular Hemoglobin 31.2 28.0-32.0 pg Mean Corpuscular Hemoglobin Concent 33.1 32.0-36.0 g/dL Red Cell Distribution Width 14.5 H 11.8-14.3 % Platelet Count 207 140-450 10^3/uL Mean Platelet Volume 8.6 6.9-10.8 fL Neutrophils (%) (Auto) 66.8 37.0-80.0 % Lymphocytes (%) (Auto) 20.0 10.0-50.0 % Monocytes (%) (Auto) 11.4 0.0-12.0 % Eosinophils (%) (Auto) 1.5 0.0-7.0 % Basophils (%) (Auto) 0.3 0.0-2.0 % Neutrophils # (Auto) 3.9 1.6-8.6 10 ^3/uL Lymphocytes # (Auto) 1.2 0.4-5.4 10 ^3/uL Monocytes # (Auto) 0.7 0-1.3 10 ^3/uL Eosinophils # (Auto) 0.1 0-0.8 10 ^3/uL Basophils # (Auto) 0 0-0.2 10 ^3/uL Nucleated Red Blood Cells 0.0 % Sodium Level 139 136-145 mmol/L Potassium Level 4.1 3.5-5.1 mmol/L Chloride Level 106 98-107 mmol/L Carbon Dioxide Level 26 20-31 mmol/L Anion Gap 7 5-15 Blood Urea Nitrogen 9 9-23 mg/dL Creatinine 0.86 0.550-1.02 mg/dL Glomerular Filtration Rate Calc 76 >90 mL/min BUN/Creatinine Ratio 10.5 10.0-20.0 Serum Glucose 100 74-106 mg/dL Hemoglobin A1c 5.5 <5.7 % A1C Calcium Level 8.7 8.7-10.4 mg/dL Magnesium Level 1.6 1.6-2.6 mg/dL Triglycerides Level 71 < 150 mg/dL Cholesterol Level 175 < 200 mg/dL LDL Cholesterol 93 < 100 mg/dL HDL Cholesterol 71 H 40-59 mg/dL Thyroid Stimulating Hormone (TSH) 5.27 H 0.55-4.78 uIU/mL Assessment Chest pain, rule out progressive coronary artery disease Severe coronary artery disease status post quadruple vessel CABG (on aspirin) Previous PCI with 1 ONEL (on ASA) Rule out structural heart disease Hypertension Dyslipidemia Tobacco use Obesity Plan/Recommendation We will continue with the following plan/recommendations (Dr. Abraham): * Transthoracic echocardiogram to evaluate cardiac function * Chest pain protocol * HEART score: 5 points * Single antiplatelet therapy and lipid-lowering agent * Close cardiac surveillance * Coronary angiogram Patient was seen and examined at bedside with . Given the patient's clinical presentation, comorbidities, and EKG changes, the patient was offered a coronary angiogram with left heart catheterization. The procedure was discussed with the patient in full detail including risks and benefits. Risks include but are not limited to bleeding, contrast-induced nephropathy, coronary dissection, stroke, and even . The patient understands and is agreeable to undergo the procedure. The patient will be tentatively scheduled on 12/21/2024. Thank you for allowing us to care for this patient. Please call with any questions or concerns. Critical care time spent: 44 minutes This medical document was created using an electronic medical record system with voice recognition software and computerized dictation system. Although this document has been carefully reviewed, there might still be some phonetic and typographical errors. Occasional wrong-word or ``sound-alike substitutions may have occurred due to the inherent limitations of voice recognition software. These areas are purely typographical due to imperfections of the software progr ams and do not reflect any compromise in the patient's medical care. Please read the chart carefully and recognize, using context, where these substitutions have occurred. Plan discussed with: Patient NYHA Physical activity limitations: NA Date of Service: Dec 19, 2024 Billing Provider: ADRIÁN CRUZ Cardiology Common Codes: [id number] INP/OBS CARE (High) Cardiology Consultation Codes: [id number] CONSULT <45MIN ADRIÁN CRUZ Dec 19, 2024 17:40
[2024-12-19 20:00] VITALS: PULSE 78
[2024-12-19 21:03] VITALS: BP 120/79; PULSE 80; RESP 18; TEMP 98.1; O2SAT 97
[2024-12-19] MEDS: METOPROLOL TARTRATE 25 MG TAB PO SCH (21:06)
--- NOTE | 2024-12-19 23:54 | DVHINCON2 ---
Date Seen: Dec 19, 2024 Referring Physician MD [place] resident Reason for Consultation Status post CABG with chest pain History of Present Illness This is a 64-year-old female with a past medical history of severe coronary artery disease status post quadruple vessel CABG in 2023, previous PTCA X 1 ONEL, hypertension, dyslipidemia, tobacco use and obesity who presents to the emergency room with a complaint of chest pain for four days. The patient describes the pain as unprovoked, pressure-like in nature, intermittent, generalized across her chest with associated shortness of breath. She reports relief with sublingual nitroglycerin. Initial twelve lead electrocardiogram rev eals normal sinus rhythm with baseline wander and artifact in multiple leads. A repeat twelve lead electrocardiogram reveals sinus bradycardia with T-wave inversion to lateral leads. Initial troponin level of 15ng/L with flat trend thereafter. Chest x-ray showed NAD. The patient follows up with a materials buyer in the outpatient setting, but is unable to recall the name at this time. Patient was admitted to the hospital. I am asked to consult on this patient. Past Medical History Past medical history reviewed. No other significant than mentioned above. Quadruple vessel CABG on November 16, 2023 Cholecystectomy Hysterectomy Left knee replacement Four back surgeries Family History: Family history: Cardiovascular disease G8 BROTHER G8 SISTER Family history: Diabetes mellitus G8 MOTHER, Name: Melissa Max, Born [birth year]14[birth year]1922, , Age: 75, Race: BLACK [place] G8 FATHER Family history: Hypertension G8 MOTHER, Name: Melissa Max, Born 04/14/1921, , Age: 75, Race: BLACK OR G8 FATHER Allergies: Coded Allergies: Metoclopramide (Verified Allergy, Unknown, 02/03/24) Prochlorperazine (Verified Allergy, Unknown, 02/03/24) Home Meds Reported Medications Atorvastatin Calcium (ATORVASTATIN CALCIUM) 20 Mg Tab, 1 TAB PO DAILY for HIGH CHOLESTEROL, #30 TAB 5 Refills 11/08/23 Aspirin (Aspir-81) 81 Mg Tab, 81 MG PO DAILY, TAB 05/29/22 Pantoprazole Sodium Sesquihydr (Protonix) 40 Mg Tab, 40 MG PO DAILY for GERD, #30 TAB 05/29/22 Metoprolol Tartrate (Metoprolol Tartrate) 25 Mg Tab, 25 MG PO BID for HTN, TAB 05/29/22 Current Medications Current Medications Medications (Trade) Dose Ordered Sig/Emily Route PRN Reason Start Time Stop Time Status Last Admin Sodium Chloride (Saline Lock Ns) 10 ml Q8HR IV 12/19/24 14:00 12/19/24 10:33 Enoxaparin Sodium (Lovenox) 40 mg DAILY SC 12/19/24 10:00 12/19/24 10:27 Acetaminophen (Tylenol Tablet) 650 mg Q6HP PRN PO PAIN SCALE 1-3 OR TEMP>100.4 12/19/24 10:00 Nitroglycerin (Ntrostat Sublingual) 0.4 mg Q5MINP PRN SL FOR CHEST PAIN 12/19/24 10:00 Morphine Sulfate 2 mg Q30M PRN IV FOR CHEST PAIN 12/19/24 10:00 Ceftriaxone Sodium 50 ml @ 100 mls/hr DAILY IV 12/19/24 10:00 12/19/24 10:32 Hydromorphone HCl (Dilaudid Injection) 0.5 mg Q6HP PRN IV PAIN SCALE 7 THRU 10 12/19/24 10:00 12/19/24 20:30 Aspirin (Ecotrin Enteric Coated Tablet) 81 mg DAILY PO 12/20/24 10:00 Atorvastatin Calcium (Lipitor) 20 mg DAILY PO 12/20/24 10:00 Metoprolol Tartrate (Lopressor Tablet) 25 mg BID PO 12/19/24 22:00 Pantoprazole Sodium (Protonix Tablet) 40 mg DAILY PO 12/20/24 10:00 Review of Systems Constitutional: No symptom reported Ears, Nose, & Throat: No symptom reported Eyes: No symptom reported Neurological: No symptoms reported Pulmonary/Respiratory: No symptoms reported Cardiovascular: Chest pain Gastrointestinal: No symptom reported Genitourinary: No symptom reported Musculoskeletal: No symptom reported Skin: No symptom reported Psychiatric: No symptom reported Endocrine: No symptom reported Hematologic/Lymphatic: No symptom reported Vital Signs Vital Signs Date Time Temp Pulse Resp B/P (MAP) Pulse Ox O2 Delivery O2 Flow Rate FiO2 12/19/24 20:30 80 18 120/79 12/19/24 16:54 98.1 96 98.1 12/19/24 13:08 Room Air* 0 21 Physical Exam GENERAL: Alert and oriented x 3. No acute distress. EYES: PERRL, EOMI. Anicteric. HENT: Moist mucous membranes. LUNGS: Clear to auscultation bilaterally. CARDIOVASCULAR: Regular rate and rhythm. ABDOMEN: Soft, nontender and nondistended. EXTREMITIES: No edema. NEUROLOGIC: No focal neurological deficits. SKIN: Warm, dry. Labs/Diagnostic Data Labs Test 12/19/24 10:54 12/19/24 08:53 12/19/24 07:27 Range/Units Troponin I High Sensitivity 14 </=34 ng/L Urine Color Yellow Yellow Urine Clarity Hazy H Clear Urine pH 5.0 5.0-9.0 Urine Specific [place] 1.022 1.001-1.035 Urine Protein Negative Negative Urine Ketones Negative Negative Urine Blood Negative Negative /uL Urine Nitrite Negative Negative Urine Bilirubin Negative Negative Urine Urobilinogen Normal Negative mg/dL Urine Leukocyte Esterase 3+ Negative /uL Urine RBC 4 0 - 4 /hpf Urine Microscopic WBC 7 H 0-5 /HPF Urine Squamous Epithelial Cells Few <5 /hpf Urine Bacteria Few H None Seen /hpf Urine Glucose Normal Normal mg/dL Urine Opiates Screen Neg NEGATIVE Urine Fentanyl Screen Neg NEGATIVE Urine Barbiturates Screen Neg NEGATIVE Urine Phencyclidine Screen Neg NEGATIVE Urine Amphetamines Screen Neg NEGATIVE Urine Benzodiazepines Screen Neg NEGATIVE Urine Cocaine Screen Neg NEGATIVE Urine Cannabinoids Screen Neg NEGATIVE White Blood Count 5.9 4.4-10.8 10^3/uL Red Blood Count 4.28 4.0-5.20 10^6/uL Hemoglobin 13.3 12.2-16.2 g/dL Hematocrit 40.3 36.0-46.0 % Mean Corpuscular Volume 94.2 80.0-100.0 fL Mean Corpuscular Hemoglobin 31.2 28.0-32.0 pg Mean Corpuscular Hemoglobin Concent 33.1 32.0-36.0 g/dL Red Cell Distribution Width 14.5 H 11.8-14.3 % Platelet Count 207 140-450 10^3/uL Mean Platelet Volume 8.6 6.9-10.8 fL Neutrophils (%) (Auto) 66.8 37.0-80.0 % Lymphocytes (%) (Auto) 20.0 10.0-50.0 % Monocytes (%) (Auto) 11.4 0.0-12.0 % Eosinophils (%) (Auto) 1.5 0.0-7.0 % Basophils (%) (Auto) 0.3 0.0-2.0 % Neutrophils # (Auto) 3.9 1.6-8.6 10 ^3/uL Lymphocytes # (Auto) 1.2 0.4-5.4 10 ^3/uL Monocytes # (Auto) 0.7 0-1.3 10 ^3/uL Eosinophils # (Auto) 0.1 0-0.8 10 ^3/uL Basophils # (Auto) 0 0-0.2 10 ^3/uL Nucleated Red Blood Cells 0.0 % Sodium Level 139 136-145 mmol/L Potassium Level 4.1 3.5-5.1 mmol/L Chloride Level 106 98-107 mmol/L Carbon Dioxide Level 26 20-31 mmol/L Anion Gap 7 5-15 Blood Urea Nitrogen 9 9-23 mg/dL Creatinine 0.86 0.550-1.02 mg/dL Glomerular Filtration Rate Calc 76 >90 mL/min BUN/Creatinine Ratio 10.5 10.0-20.0 Serum Glucose 100 74-106 mg/dL Hemoglobin A1c 5.5 <5.7 % A1C Calcium Level 8.7 8.7-10.4 mg/dL Magnesium Level 1.6 1.6-2.6 mg/dL Triglycerides Level 71 < 150 mg/dL Cholesterol Level 175 < 200 mg/dL LDL Cholesterol 93 < 100 mg/dL HDL Cholesterol 71 H 40-59 mg/dL Thyroid Stimulating Hormone (TSH) 5.27 H 0.55-4.78 uIU/mL Assessment Chest pain, rule out progressive coronary artery disease. Severe coronary artery disease status post quadruple vessel CABG (on aspirin). Previous PCI with 1 ONEL (on ASA). Rule out structural heart disease. Hypertension. Dyslipidemia. Tobacco use. Obesity. Plan/Recommendation I agree with your ongoing assessment and care of plan. Patient has been seen by Kimberly Olivares NP on my behalf, her and I discussed the plan with the patient. Transthoracic echocardiogram to evaluate cardiac function. Chest pain protocol. HEART score: 5 points. Single antiplatelet therapy and lipid-lowering agent. Close cardiac surveillance. Coronary angiogram. Given the patient's clinical presentation, comorbidities, and EKG changes, the patient was offered a coronary angiogram with left heart catheterization. The procedure was discussed with the patient in full detail including risks and benefits. Risks include but are not limited to bleeding, contrast-induced nephropathy, coronary dissection, stroke, and even . The patient understands and is agreeable to undergo the procedure. The patient will be tentatively scheduled on 12/21/2024. Additional plan as per the hospital course. Plan discussed with: Patient NYHA 2 Physical activity limitations: NA Date of Service: Dec 19, 2024 Billing Provider: ALAN NICOLAS MD Cardiology Common Codes: 51794-IADABCF INP/OBS CARE (High) Cardiology Consultation Codes: 00534-[id number] CONSULT <45MIN ALAN NICOLAS MD Dec 19, 2024 20:50
[2024-12-20] VITALS (9 sets, daily range): BP systolic 114–139; BP diastolic 68–96; PULSE 60–110; RESP 16–19; TEMP 97.6–98.9; O2SAT 92–100
[2024-12-20 06:02] LABS: COVID19 ANTIGEN SOFIA FIA NEGATIVE (NEGATIVE)
[2024-12-20 06:04] LABS: Hematocrit 38.3 % (36.0-46.0); Hemoglobin 12.8 g/dL (12.2-16.2); Mean Corpuscular Hemoglobin 31.4 pg (28.0-32.0); Mean Corpuscular Volume 93.6 fL (80.0-100.0); Nucleated Red Blood Cells % 0.0 %
[2024-12-20 06:13] LABS: Alanine Aminotransferase 21 U/L (7-40); Alkaline Phosphatase 68 U/L (46-116); Anion Gap 8 (5-15); BUN/Creatinine Ratio 11.1 (10.0-20.0); Blood Urea Nitrogen 9 mg/dL (9-23); Carbon Dioxide 26 mmol/L (20-31); Chloride 104 mmol/L (98-107); Potassium 4.1 mmol/L (3.5-5.1); Sodium 138 mmol/L (136-145); Total Protein 6.4 g/dL (5.7-8.2)
[2024-12-20 06:14] LABS: Albumin 3.8 g/dL (3.2-4.8)
[2024-12-20 06:16] LABS: Calcium 8.6 mg/dL (8.7-10.4); Glucose 114 mg/dL (74-106); INR 1.05 (0.9-1.15); Partial Thromboplastin Time 28.1 SEC (24.5-34.5); Prothrombin Time 11.1 sec (9.3-11.8)
[2024-12-20 06:29] LABS: Bilirubin, Total 0.6 mg/dL (0.2-1.0)
[2024-12-20] MEDS: ASPirin-EC 81 mg tab PO SCH (09:07)
[2024-12-20] MEDS: PANTOPRAZOLE 40 MG TAB PO SCH (09:07)
[2024-12-20] MEDS: ATORVASTATIN 20 MG TAB PO SCH (09:08)
--- NOTE | 2024-12-20 09:57 | DVHPN2 ---
Subjective 64-year-old female who was admitted for chest pain She is scheduled for angiogram tomorrow Changes from previous H/P or p: Changes Objective Vitals Vital Signs Date Time Temp Pulse Resp B/P (MAP) Pulse Ox O2 Delivery O2 Flow Rate FiO2 12/20/24 09:08 69 115/90 12/20/24 09:07 18 12/20/24 09:00 97.8 94 97.8 12/20/24 08:00 Room Air* 0 21 Intake/Output Intake and Output 12/20/24 07:00 Intake Total 2100 ml Balance 2100 ml Intake Oral 2050 ml IV Total 50 ml # Voids 9 General Appearance: Alert, Oriented X3, Cooperative Lungs: Clear to auscultation, Normal air movement Cardiovascular: Regular rate, Normal S2 Abdomen: Normal bowel sounds, Soft, No tenderness Extremities: No edema Medications Current Medications Medications Dose Ordered Sig/Emily Route Start Time Stop Time Status Last Admin Dose Admin Sodium Chloride 10 ml Q8HR IV 12/19/24 14:00 12/20/24 09:08 10 ML Enoxaparin Sodium 40 mg DAILY SC 12/19/24 10:00 12/19/24 10:27 40 MG Acetaminophen 650 mg Q6HP PRN PO 12/19/24 10:00 Nitroglycerin 0.4 mg Q5MINP PRN SL 12/19/24 10:00 Morphine Sulfate 2 mg Q30M PRN IV 12/19/24 10:00 Ceftriaxone Sodium 50 ml @ 100 mls/hr DAILY IV 12/19/24 10:00 12/20/24 09:06 100 MLS/HR Hydromorphone HCl 0.5 mg Q6HP PRN IV 12/19/24 10:00 12/20/24 09:07 0.5 MG Aspirin 81 mg DAILY PO 12/20/24 10:00 Atorvastatin Calcium 20 mg DAILY PO 12/20/24 10:00 12/20/24 09:08 20 MG Metoprolol Tartrate 25 mg BID PO 12/19/24 22:00 12/20/24 09:08 25 MG Pantoprazole Sodium 40 mg DAILY PO 12/20/24 10:00 12/20/24 09:07 40 MG Laboratory Results Laboratory Tests 12/20/24 04:53 Chemistry Test 12/20/24 04:53 Albumin 3.8 g/dL (3.2-4.8) Calcium Level 8.6 mg/dL (8.7-10.4) L Total Protein 6.4 g/dL (5.7-8.2) Coagulation Test 12/20/24 04:53 Prothrombin Time 11.1 sec (9.3-11.8) Prothrombin Time INR 1.05 (0.9-1.15) Activated Partial Thromboplast Time 28.1 SEC (24.5-34.5) LFT Test 12/20/24 04:53 Alanine Aminotransferase (ALT) 21 U/L (7-40) Alkaline Phosphatase 68 U/L (46-116) Aspartate Amino Transferase (AST) 30 U/L (13-40) Total Bilirubin 0.6 mg/dL (0.2-1.0) Urinalysis Test 12/19/24 08:53 Urine Color Yellow (Yellow) Urine Clarity Hazy (Clear) H Urine pH 5.0 (5.0-9.0) Urine Specific [place] 1.022 (1.001-1.035) Urine Protein Negative (Negative) Urine Ketones Negative (Negative) Urine Blood Negative /uL (Negative) Urine Nitrite Negative (Negative) Urine Bilirubin Negative (Negative) Urine Urobilinogen Normal mg/dL (Negative) Urine Leukocyte Esterase 3+ /uL (Negative) Urine RBC 4 /hpf (0 - 4) Urine Microscopic WBC 7 /HPF (0-5) H Urine Squamous Epithelial Cells Few /hpf (<5) Urine Bacteria Few /hpf (None Seen) H Urine Glucose Normal mg/dL (Normal) Assessment/Plan Assessment/Plan Unstable angina Coronary artery disease Status post CABG Status post PTCA Mixed hyperlipidemia Smoking Hypertension UTI Plan Cardiology consult Angiogram in the morning Rocephin IV Aspirin Lipitor Monitor closely Full code Advance directives discussed for 18 minutes Plan discussed with: Patient Date of Service: Dec 20, 2024 Billing Provider: REYMUNDO ADAME MD Common Visit Codes: [id number] INP/OBS CARE(HIGH) Secondary Visit Codes: [id number] CARE PLAN 30 MINUTES REYMUNDO ADAME MD Dec 20, 2024 09:57
[2024-12-20] MEDS: ONDANSETRON HCL 4 MG/2 ML VIAL IV PRN (12:49)
--- NOTE | 2024-12-20 15:36 | DVHSR ---
APPROVED REPORT EXAM: Two-dimensional and M-mode echocardiogram with Doppler and color Doppler. Blood Pressure: 114/76 mmHg INDICATION Rule Out Congestive Heart Failure Surgery/Intervention CABG: RISK FACTORS Obesity: Height: 5' 6", Weight: 257 DIMENSIONS LVDd4.3 (3.8-5.7cm)LA (2D)3.9 (1.9-4.0cm)Aortic Root3.3 (2.0-3.7cm) LVDs3.1 (2.5-4.0cm)LA (MM) (1.9-4.0cm)Aortic Cusp Exc1.9 (1.5-2.0cm) EF (%) 55.0 (55-70%)Rt. Atrium4.0 (1.9-4.0cm)Asc. Aorta cm IVSd1.2 (0.7-1.1cm)RV (D) (1.8-2.4cm) PWd1.2 (0.7-1.1cm) Mitral Valve MitralMitral Stenosis E wave1.00m/sMV Mean GR.mmHg A wave0.90m/sMV Peak GR.mmHg E/A ratio1.12D MVAcm2 Aortic Valve Aortic ValveAortic Stenosis V10.80m/Laura Mean GR.3mmHg V21.20m/Laura Peak GR.6mmHg LVOT Diameter2.2 (1.8-2.4cm)Doppler AVA2.53cm2 Conclusion MODERATE DEGREE LVH AND MODERATE DEGREE LV DIASTOLIC DYSFUNCTION LV EF IS 65% MODERATELY DILATED RV AND RA MOST LIKELY CHRONIC RIGHT HEART FAILURE NORMAL VALVES NO EFFUSION
[2024-12-20] MEDS: LACTULOSE 20Gm/30ML SOLN PO PRN (17:39)
[2024-12-20] MEDS ORDERED: LACTULOSE 20Gm/30ML SOLN PO SCH (18:00)
[2024-12-20] MEDS: DOCUSATE SOD 100 MG CAP PO SCH (21:47)
--- NOTE | 2024-12-20 23:06 | DVHPN2 ---
Progress Note - Dictate Date Seen: Dec 20, 2024 Medical Necessity Reason Pt with a Central, PICC or Fol: No Subjective Patient was seen and evaluated in follow up. No overnight events. Patient is scheduled for angiogram tomorrow. CA 8.6. Telemetry reviewed. vital signs Vital Sign Date Time Temp Pulse Resp B/P (MAP) Pulse Ox O2 Delivery O2 Flow Rate FiO2 12/20/24 20:21 70 16 122/68 12/20/24 20:00 Room Air* 0 21 12/20/24 16:42 98.5 100 98.5 Total Intake and Output 12/19/24 12/19/24 12/20/24 15:00 23:00 07:00 Intake Total 50 ml 450 ml 1600 ml Balance 50 ml 450 ml 1600 ml medications Current Medications Medications Dose Ordered Sig/Emily Route Start Time Stop Time Status Last Admin Dose Admin Sodium Chloride 10 ml Q8HR IV 12/19/24 14:00 12/20/24 09:08 10 ML Enoxaparin Sodium 40 mg DAILY SC 12/19/24 10:00 12/19/24 10:27 40 MG Acetaminophen 650 mg Q6HP PRN PO 12/19/24 10:00 Nitroglycerin 0.4 mg Q5MINP PRN SL 12/19/24 10:00 Morphine Sulfate 2 mg Q30M PRN IV 12/19/24 10:00 Ceftriaxone Sodium 50 ml @ 100 mls/hr DAILY IV 12/19/24 10:00 12/20/24 09:06 100 MLS/HR Hydromorphone HCl 0.5 mg Q6HP PRN IV 12/19/24 10:00 12/20/24 20:21 0.5 MG Aspirin 81 mg DAILY PO 12/20/24 10:00 Atorvastatin Calcium 20 mg DAILY PO 12/20/24 10:00 12/20/24 09:08 20 MG Metoprolol Tartrate 25 mg BID PO 12/19/24 22:00 12/20/24 09:08 25 MG Pantoprazole Sodium 40 mg DAILY PO 12/20/24 10:00 12/20/24 09:07 40 MG Ondansetron HCl 4 mg Q4HPRN PRN IV 12/20/24 11:30 12/20/24 20:20 4 MG Docusate Sodium 100 mg BID PO 12/20/24 22:00 Lactulose 30 ml Q6HR PRN PO 12/20/24 18:00 12/20/24 17:39 30 ML objective GENERAL: Alert and oriented x 3. No acute distress. EYES: PERRL, EOMI. Anicteric. HENT: Moist mucous membranes. LUNGS: Clear to auscultation bilaterally. CARDIOVASCULAR: Regular rate and rhythm. ABDOMEN: Soft, nontender and nondistended. EXTREMITIES: No edema. NEUROLOGIC: No focal neurological deficits. SKIN: Warm, dry. laboratory and microbiology Laboratory Tests 12/20/24 04:53 Test 12/20/24 04:53 Range/Units Serum Glucose 114 H 74-106 mg/dL Problem List Chest pain, rule out progressive coronary artery disease. Severe coronary artery disease status post quadruple vessel CABG (on aspirin). Previous PCI with 1 ONEL (on ASA). Rule out structural heart disease. Hypertension. Dyslipidemia. Tobacco use. Obesity. Assessment/Plan Continued all current supportive medical care. Aspirin, Lipitor, Metoprolol. IV antibiotics as ordered. DVT and GI prophylactics. Nitro SL. Dilaudid for pain management. Additional plan as per the hospital course. Plan discussed with: Patient ALAN NICOLAS MD Dec 20, 2024 21:29
[2024-12-21] VITALS (11 sets, daily range): BP systolic 110–142; BP diastolic 64–86; PULSE 62–81; RESP 12–20; TEMP 36.7; O2SAT 92–95
[2024-12-21 07:32] LABS: Hematocrit 39.9 % (36.0-46.0); Hemoglobin 13.4 g/dL (12.2-16.2); Mean Corpuscular Hemoglobin 31.6 pg (28.0-32.0); Mean Corpuscular Volume 94.5 fL (80.0-100.0); Nucleated Red Blood Cells % 0.1 %
[2024-12-21 07:43] LABS: Anion Gap 10 (5-15); Carbon Dioxide 23 mmol/L (20-31); Chloride 106 mmol/L (98-107); Potassium 4.4 mmol/L (3.5-5.1); Sodium 139 mmol/L (136-145)
[2024-12-21 07:45] LABS: Calcium 8.8 mg/dL (8.7-10.4)
[2024-12-21 07:49] LABS: BUN/Creatinine Ratio 9.0 (10.0-20.0); Blood Urea Nitrogen 8 mg/dL (9-23); Glucose 91 mg/dL (74-106)
[2024-12-21] MEDS: IODIXANOL 320MG/ML 100ML BTL IV ONE ×2 (10:49→10:51)
[2024-12-21] MEDS: MIDAZOLAM HCL 2MG/2ML 2ml VIAL (1mg/ml) ONE (10:49)
[2024-12-21] MEDS: LIDOCAINE 2%HCL (LOCAL ANESTH.) INJ 20ML MDV ONE (10:50)
[2024-12-21] MEDS: ANGIOMAX 250 MG VIAL IV ONE (10:50)
[2024-12-21] MEDS: SODIUM CHL 0.9% 0 ML ONE (10:51)
[2024-12-21] MEDS: fentaNYL CITRATE 100 MCG/2 ML VL ONE (10:51)
--- NOTE | 2024-12-21 13:40 | DVHDS2 ---
Discharge Summary Date of Admission Dec 19, 2024 at 09:47 Date of Discharge: Dec 21, 2024 Labs/Diagnostic Data: Laboratory Results Test 12/21/24 05:45 12/20/24 04:53 12/19/24 10:54 12/19/24 08:53 White Blood Count 5.6 10^3/uL (4.4-10.8) Red Blood Count 4.23 10^6/uL (4.0-5.20) Hemoglobin 13.4 g/dL (12.2-16.2) Hematocrit 39.9 % (36.0-46.0) Mean Corpuscular Volume 94.5 fL (80.0-100.0) Mean Corpuscular Hemoglobin 31.6 pg (28.0-32.0) Mean Corpuscular Hemoglobin Concent 33.5 g/dL (32.0-36.0) Red Cell Distribution Width 14.2 % (11.8-14.3) Platelet Count 200 10^3/uL (140-450) Mean Platelet Volume 9.3 fL (6.9-10.8) Neutrophils (%) (Auto) 69.0 % (37.0-80.0) Lymphocytes (%) (Auto) 18.8 % (10.0-50.0) Monocytes (%) (Auto) 11.0 % (0.0-12.0) Eosinophils (%) (Auto) 1.0 % (0.0-7.0) Basophils (%) (Auto) 0.2 % (0.0-2.0) Neutrophils # (Auto) 3.9 10 ^3/uL (1.6-8.6) Lymphocytes # (Auto) 1.1 10 ^3/uL (0.4-5.4) Monocytes # (Auto) 0.6 10 ^3/uL (0-1.3) Eosinophils # (Auto) 0.1 10 ^3/uL (0-0.8) Basophils # (Auto) 0 10 ^3/uL (0-0.2) Nucleated Red Blood Cells 0.1 % Sodium Level 139 mmol/L (136-145) Potassium Level 4.4 mmol/L (3.5-5.1) Chloride Level 106 mmol/L (98-107) Carbon Dioxide Level 23 mmol/L (20-31) Anion Gap 10 (5-15) Blood Urea Nitrogen 8 mg/dL (9-23) Creatinine 0.89 mg/dL (0.550-1.02) Glomerular Filtration Rate Calc 73 mL/min (>90) BUN/Creatinine Ratio 9.0 (10.0-20.0) Serum Glucose 91 mg/dL (74-106) Calcium Level 8.8 mg/dL (8.7-10.4) Prothrombin Time 11.1 sec (9.3-11.8) Prothrombin Time INR 1.05 (0.9-1.15) Activated Partial Thromboplast Time 28.1 SEC (24.5-34.5) Total Bilirubin 0.6 mg/dL (0.2-1.0) Aspartate Amino Transferase (AST) 30 U/L (13-40) Alanine Aminotransferase (ALT) 21 U/L (7-40) Alkaline Phosphatase 68 U/L (46-116) Total Protein 6.4 g/dL (5.7-8.2) Albumin 3.8 g/dL (3.2-4.8) Troponin I High Sensitivity 14 ng/L (</=34) Urine Color Yellow (Yellow) Urine Clarity Hazy (Clear) Urine pH 5.0 (5.0-9.0) Urine Specific [place] 1.022 (1.001-1.035) Urine Protein Negative (Negative) Urine Ketones Negative (Negative) Urine Blood Negative /uL (Negative) Urine Nitrite Negative (Negative) Urine Bilirubin Negative (Negative) Urine Urobilinogen Normal mg/dL (Negative) Urine Leukocyte Esterase 3+ /uL (Negative) Urine RBC 4 /hpf (0 - 4) Urine Microscopic WBC 7 /HPF (0-5) Urine Squamous Epithelial Cells Few /hpf (<5) Urine Bacteria Few /hpf (None Seen) Urine Glucose Normal mg/dL (Normal) Urine Opiates Screen Neg (NEGATIVE) Urine Fentanyl Screen Neg (NEGATIVE) Urine Barbiturates Screen Neg (NEGATIVE) Urine Phencyclidine Screen Neg (NEGATIVE) Urine Amphetamines Screen Neg (NEGATIVE) Urine Benzodiazepines Screen Neg (NEGATIVE) Urine Cocaine Screen Neg (NEGATIVE) Urine Cannabinoids Screen Neg (NEGATIVE) Test 12/19/24 07:27 12/19/24 02:00 Hemoglobin A1c 5.5 % A1C (<5.7) Magnesium Level 1.6 mg/dL (1.6-2.6) Triglycerides Level 71 mg/dL (< 150) Cholesterol Level 175 mg/dL (< 200) LDL Cholesterol 93 mg/dL (< 100) HDL Cholesterol 71 mg/dL (40-59) Thyroid Stimulating Hormone (TSH) 5.27 uIU/mL (0.55-4.78) Influenza Type A Antigen Negative (Negative) Influenza Type B Antigen Negative (Negative) SARS-CoV-2 Antigen (Rapid) Negative (NEGATIVE) Other Laboratory Tests 12/21/24 05:45 Brief Hx & Hospital Course: Final diagnoses: Chest pain, DE ruled out, most likely musculoskeletal Coronary artery disease, chronic, stable Status post CABG Status post PTCA Mixed hyperlipidemia Smoking Hypertension UTI 64-year-old female who was admitted for chest pain was ruled out for myocardial infarction but because of her history of CAD and CABG before she was seen by Cardiology and recommended to have an angiogram today which was done and it showed no active stenosis, her circulation to the heart is patent with collaterals according to Dr. Abraham with a no angioplasty needed The patient is stable She was diagnosed with UTI and was given 3 doses of Rocephin IV She is stable for discharge to continue aspirin and atorvastatin and metoprolol and Protonix Follow up with her primary care physician as soon as possible Condition at Discharge: Stable Final Diagnosis/Problems List Coronary artery disease Status post CABG Status post PTCA Mixed hyperlipidemia Smoking Hypertension UTI Discharge Disposition: Home SNF Discharge Will this Physician continue t: No Discharge Instruct/Medications Scheduled Aspirin (Aspir-81), 81 MG PO DAILY, (Reported) Atorvastatin Calcium (Atorvastatin Calcium), 1 TAB PO DAILY, (Reported) Metoprolol Tartrate (Metoprolol Tartrate), 25 MG PO BID, (Reported) Pantoprazole Sodium Sesquihydr (Protonix), 40 MG PO DAILY, (Reported) Discharge Statement: "Patient was advised to return to the ER or call 911 if any headaches, dizziness, shortness of breath, chest pain, abdominal pain, bleeding, fevers, or worsening of medical condition. Patient was counseled about treatment plan, medications, possible side effects, patientverbalized understanding. All questions were answered to the best of my ability. This discharge took greater then 30 minutes in planning, reviewing documentation, counseling the patient, and discussing with other team members." ASSESSMENT ASSESSMENT Assessment Date of Service: Dec 21, 2024 Billing Provider: REYMUNDO ADAME MD Common Visit Codes: 94381-EIR/OBS DISCH DAY >30min REYMUNDO ADAME MD Dec 21, 2024 13:40
--- NOTE | 2024-12-21 15:34 | DVHOP ---
DATE OF SURGERY: 12/21/2024 TECHNIQUE PERFORMED: * Emergency case. * Ultrasound of the right radial and right femoral artery. * Insertion of a 6-[place] arterial line in the right femoral artery under fluoroscopic guidance. * Left heart cath. * Left ventriculogram. * [place] selective left and right coronary artery angiography. * Venous bypass graft angiography x 2: Venous bypass graft angiography to right coronary artery and venous bypass graft angiography to obtuse marginal artery. * Left subclavian angiography. * Left internal mammary artery angiography. * Right iliofemoral artery angiography. * Arteriotomy and Angio-Seal of the right femoral artery. COMPLICATIONS: None. ASSISTANTS: Assisted by Jose Bro Janice and Shon. INDICATIONS: History of bypass graft surgery, acute coronary syndrome. DESCRIPTION OF PROCEDURE: Risks and benefits discussed. Counseling done. Questions answered. Informed consent given. Brought to our labor employment associate. The patient's right groin was shaved, cleaned with soap and Betadine. A 6-[place] arterial line had been placed in a standard manner. Subsequently, under fluoroscopy, angiography was done with the help of JL4 catheter. Able to do the right coronary angiography with the help of similar catheter. We also obtained a stump of the venous bypass graft to posterior descending artery with the help of similar catheter. We also did angiography to obtuse marginal artery bypass graft with the help of similar catheter. We also did left subclavian and left internal mammary artery angiography. Subsequently, with the help of a pigtail catheter, complete left side cath had been done. The left ventriculogram was done in the right anterior oblique view with a total of 20 mL of dye. Post-LV gram, left ventriculogram was performed with the help of pull-through technique. We also performed. Pigtail catheter also had been discontinued. Procedure completed. Right iliofemoral angiography done to do Angio-Seal. Procedure completed. No complications. We are following the report available at this time. IMPRESSION: * The left main is normal. The left main is dividing into left anterior descending artery and circumflex artery. The left anterior descending artery is a widely open artery. It also has retrograde filling of the internal mammary artery graft from the mid region. * The [place] circumflex is a large artery. It gives a very large obtuse marginal artery and it is widely open. * There is also 95% narrowing noted in the mid region of the left circumflex artery, but there is also a left bypass graft, which has been attached to the third obtuse marginal artery, which appeared to have some competitive flow. * The patient's right coronary artery is filling up retrogradely with the help of the left coronary system to the distal one-third region. * The right coronary artery is 100% occluded at the mid region. * The venous bypass graft angiography to posterior artery has been noted and it is at the stump. The bypass graft is 100% occluded at the origin. * The venous bypass graft to the obtuse marginal artery also has been widely open. The marginal branch bypass graft is noted. It is filling up retrogradely the circumflex artery. It is normal. * The left internal mammary artery and obtuse left anterior descending artery are also widely open. There is filling of diagonal artery and also filling of retrogradely the right coronary artery. * Ejection fraction of the left ventricle is 65%, normal. There is no wall motion abnormality. CONCLUSION: * The venous bypass to posterior descending artery is 100% occluded at the ostium. * Left main normal. * Left anterior descending artery widely open. * Left internal mammary artery graft is also widely open. * Renal bypass graft to obtuse marginal artery is also widely open. * The [place] circumflex has 95% blockade. Stenosis noted in the mid region. * Ejection fraction 65%. PLAN OF ACTION: At this time, the patient does not need any intervention because her circumflex artery has already been protected by the venous bypass graft to proximal artery. The patient will need conservative medical treatment and outpatient followup. MD DHIRAJ Garcia TID: [id number] RECEIPT: [id number] [facility]
--- NOTE | 2024-12-22 02:34 | DVHPN2 ---
Progress Note - Dictate Date Seen: Dec 21, 2024 Medical Necessity Reason Pt with a Central, PICC or Fol: No Subjective Patient was seen and evaluated in follow up. Patient underwent emergency left heart cath, [place] selective left and right coronary artery angiography, venous bypass graft angiography x 2: Venous bypass graft angiography [place] coronary artery and venous bypass graft angiography to obtuse marginal artery left subclavian angiography, left internal mammary artery angiography, right iliofemoral artery angiography, arteriotomy and Angio-Seal of the right femoral artery. At this time, the patient does not need any intervention because her circumflex artery has already been protected by the venous bypass graft to proximal artery. The patient will need conservative medical treatment and outpatient followup. Patient is cardiac stable for discharge. Telemetry reviewed. vital signs Vital Sign Date Time Temp Pulse Resp B/P (MAP) Pulse Ox O2 Delivery O2 Flow Rate FiO2 12/21/24 14:23 36.7 73 12/21/24 13:13 127/75 12/21/24 13:00 18 94 12/21/24 07:47 Room Air* 0 21 Total Intake and Output 12/21/24 12/21/24 12/22/24 15:00 23:00 07:00 Intake Total 50 ml Balance 50 ml objective GENERAL: Alert and oriented x 3. No acute distress. EYES: PERRL, EOMI. Anicteric. HENT: Moist mucous membranes. LUNGS: Clear to auscultation bilaterally. CARDIOVASCULAR: Regular rate and rhythm. ABDOMEN: Soft, nontender and nondistended. EXTREMITIES: No edema. NEUROLOGIC: No focal neurological deficits. SKIN: Warm, dry. laboratory and microbiology Laboratory Tests 12/21/24 05:45 Test 12/21/24 05:45 Range/Units Serum Glucose 91 74-106 mg/dL Problem List Chest pain, rule out progressive coronary artery disease. Severe coronary artery disease status post quadruple vessel CABG (on aspirin). Previous PCI with 1 ONEL (on ASA). Rule out structural heart disease. Hypertension. Dyslipidemia. Tobacco use. Obesity. Assessment/Plan Continued all current supportive medical care. Aspirin, Lipitor, Metoprolol. IV antibiotics as ordered. DVT and GI prophylactics. Nitro SL. Dilaudid for pain management. Additional plan as per the hospital course. Plan discussed with: Patient ALAN NICOLAS MD Dec 22, 2024 02:34
== END 2024-12-21 15:33 | disposition home or self-care (01) | DRG 287 ==
LOC: ER 07:08 → OVERFLOW 09:47 → TELE-EAST 12:52
PROVIDERS: ADMIT Internal Medicine Geriatric Medicine; ATTEND Internal Medicine Geriatric Medicine
PROC: 4A023N7 Measurement of Cardiac Sampling and Pressure, Left Heart, Percutaneous Approach (ICD-10-PCS; principal; 2024-12-21)
PROC: B211YZZ Fluoroscopy of Multiple Coronary Arteries using Other Contrast (ICD-10-PCS; 2024-12-21)
PROC: B213YZZ Fluoroscopy of Multiple Coronary Artery Bypass Grafts using Other Contrast (ICD-10-PCS; 2024-12-21)
PROC: B218YZZ Fluoroscopy of Left Internal Mammary Bypass Graft using Other Contrast (ICD-10-PCS; 2024-12-21)
PROC: B215YZZ Fluoroscopy of Left Heart using Other Contrast (ICD-10-PCS; 2024-12-21)
PROC: B41FYZZ Fluoroscopy of Right Lower Extremity Arteries using Other Contrast (ICD-10-PCS; 2024-12-21)
PROC: B31JYZZ Fluoroscopy of Left Upper Extremity Arteries using Other Contrast (ICD-10-PCS; 2024-12-21)
DX: R07.89 Other chest pain (principal); E66.9 Obesity, unspecified; N39.0 Urinary tract infection, site not specified; I10 Essential (primary) hypertension; J45.909 Unspecified asthma, uncomplicated; Z68.41 Body mass index [BMI] 40.0-44.9, adult; Z20.822 Contact with and (suspected) exposure to COVID-19; K21.9 Gastro-esophageal reflux disease without esophagitis; I25.82 Chronic total occlusion of coronary artery; E78.2 Mixed hyperlipidemia; Z96.652 Presence of left artificial knee joint; F17.210 Nicotine dependence, cigarettes, uncomplicated; I25.2 Old myocardial infarction; Z90.710 Acquired absence of both cervix and uterus; Z90.49 Acquired absence of other specified parts of digestive tract; Z95.1 Presence of aortocoronary bypass graft; Z98.61 Coronary angioplasty status; Z82.49 Family history of ischemic heart disease and other diseases of the circulatory system; Z83.3 Family history of diabetes mellitus; Z88.8 Allergy status to other drugs, medicaments and biological substances; Z79.82 Long term (current) use of aspirin; I25.118 Atherosclerotic heart disease of native coronary artery with other forms of angina pectoris
CPT/HCPCS: 36415; 71045; 80048; 80053; 80061; 80307; 81001; 83036; 83735; 84443; 84484; 85025; 85610; 85730; 87426; 87804; 93005; 93306; 93459; 99152; G0378; J2250; J2405; Q9967